=== PATIENT | female | born 1930 | race Caucasian/White ===

== ENCOUNTER → 2018-10-08 11:12 | Emergency (ER) | payer MEDICARE ==
--- OUTSIDE RECORDS SUMMARY | 2018-10-08 11:33 | XMS REPORT | Continuity of Care Document ---
:1930 External Reference #:[id number] Author Name Marquita Scott PA-C Address [address] [place] [address] Care Team Providers Name Role Phone Abdi Jiménez Care Team Information Stoner Hand Unavailable Amber Shultz M.D. Primary Care Physician Unavailable Payers Type Date Identification Numbers Payment Provider Subscriber Policy Number: [id number] [place] [employer] Cathy Myers PayID: [id number] [address] [place] [address] Policy Number: [id number] [facility] Cathy Myers PayID: [id number] [address] [place] [address] Advance Directives Description No Information Available Problems Date Description Provider Status Onset: 01/25/2011 Essential hypertension Lucio Uriostegui MD Active Onset: 07/28/2017 Impacted nazario Kellogg MD Active Family History Date Family Member(s) Problem(s) Comments General Allergies General Cancer General Hearing Loss General Heart Attack General Thyroid Disease Social History Type Date Description Comments Sex Unknown Occupation Retired Tobacco Use Start: Unknown End: Former Cigarette Smoker 2 Smoked for 40 years, Unknown Packs Daily quit at age 64 Tobacco Use Start: Unknown Never Smoked Cigars Tobacco Use Start: Unknown Never Smoked A Pipe Smokeless Tobacco Never Used Smokeless Tobacco ETOH Use Currently occasionally consumes alcohol Tobacco Use Start: Unknown End: Patient is a former Unknown smoker Allergies, Adverse Reactions, Alerts Date Description Reaction Status Severity Comments 08/24/2007 Penicillin swelling Active Medications Medication Date Status Form Strength Qnty SIG Indications Ordering Provider Atenolol Active Unknown 000 Acerola C 500 0 Hx Wafer 500mg Unknown 000 - [address] 400mg Unknown 000 - 011 Asacol Hx Unknown 000 - 017 Multivitamins Hx Unknown 000 - 018 Calcium + D Hx Unknown 000 - 018 Lutein Hx Unknown 000 - 018 Cod Liver Oil Hx Unknown 000 - 018 Oxycodone HCL Hx Tablets 5mg Harpal 000 - Fadi CRUZ [address] 20mg Rolan 000 - Dionte Diaz 018 Risedronate Hx Tablets 150mg Crepet, Sodium 000 - Emily Clark 018 Advair Diskus Hx Aerosol 250-50mcg/D Oma Shultz - sabrina Clark M.D. 018 Econazole Hx Cream 1% Unknown Nitrate 000 - 018 Flovent HFA Hx Aerosol 110mcg/Act Oma Shultz - Emily Clark 018 Immunizations CPT Code Status Date Vaccine Lot # [id number] Given Unknown Pneumococcal Vaccine 2Yrs Or Older 54467 Given Unknown Influenza Virus Vaccine, 3 Years Of Age And Above, Intramuscular Vital Signs Date Vital Result Comment 07/28/2017 8:53am BP Systolic 82 mmHg BP Diastolic 44 mmHg Heart Rate 66 /min Respiratory Rate 17 /min Weight 116.00 lb Weight 52.618 kg Height 60 inches 5'0" Height in cm's 152.4 cm BMI (Body Mass Index) 22.7 kg/m2 07/26/2016 12:07pm BP Systolic 138 mmHg BP Diastolic 68 mmHg Heart Rate 66 /min Respiratory Rate 17 /min Weight 116.00 lb Weight 52.618 kg Height 60 inches 5'0" Height in cm's 152.4 cm BMI (Body Mass Index) 22.7 kg/m2 01/25/2011 10:04am BP Systolic 162 mmHg BP Diastolic 104 mmHg Heart Rate 63 /min Respiratory Rate 16 /min 08/24/2007 11:20am BP Systolic 142 mmHg BP Diastolic 85 mmHg Heart Rate 61 /min Respiratory Rate 10 /min Results Description No Information Available Procedures Date Code Description Status 09/11/2018 57243 Removal Wax Impaction Completed 07/28/2017 41196 Removal Wax Impaction Completed 01/25/2011 38969 Tympanometry Completed 01/25/2011 95502 Comprehensive Audiogram Completed 08/24/2007 76063 Tympanometry Completed 08/24/2007 97930 Tympanometry Completed 08/24/2007 98576 Comprehensive Audiogram Completed 08/24/2007 03085 Comprehensive Audiogram Completed Encounters Type Date Location Provider Dx Diagnosis Office Visit 07/26/2016 [place] Lucio Morales H61.23 Impacted cerumen, 11:45a 11/03/07 MD Gila bilateral 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
[2018-10-08 12:26] LABS: ABS Basophils 0 10^3/ul (0-0.2); ABS Eosinophils 0.1 10^3/ul (0-0.6); ABS Lymphocytes 0.4 10^3/ul (1.0-4.8); ABS Monocytes 0.2 10^3/ul (0-0.8); ABS Neutrophils 3.7 10^3/ul (1.5-7.7); ABS Nucleated RBC 0 10^3/ul; Eosinophil % 1.4 %; Hematocrit 33 % (35-47); Hemoglobin 11.3 g/dl (12.0-16.0); Mean Corpuscular HGB Conc 34 g/dl (31-36); Mean Corpuscular Hemoglobin 32 pg (27-31); Mean Corpuscular Volume 94 fL (80-97); Mean Platelet Volume 6.6 fL (7.4-10.4); Nucleated Red Blood Cells % 0; Platelet Count 313 10^3/ul (150-450); Red Blood Count 3.51 10^6/ul (4.00-5.40); Red Cell Distribution Width 16 % (10.5-15); White Blood Count 4.4 10^3/ul (3.5-10.8)
--- NOTE | 2018-10-08 12:47 | ED ---
Neurological HPI - HPI Summary HPI Summary: Pt is an 88 y/o female who presents to the ED s/p possible syncope. 1 month ago , she fell and had LOC. As per daughter, she was down for a long time. 3 days ago, she leaned over and fell and couldnt get up. Pt denies any LOC or injury for this recent fall. As per daughter, she is normally independent but in the past month she cant walk without her walker. Daughter also notes that her face is more droopy than usual. Pt has CT scheduled in 6 days for her 6 month check up for her lung cancer treatment. Pt denies any fever, chills, erythema, sore throat, CP, SOB, cough, abdominal pain, N/V, dysuria, hematuria, myalgia, edema , rash, headache, lightheadedness, or dizziness. She is a former smoker. - History of Current Complaint Chief Complaint: EDSyncope Stated Complaint: POSS STROKE Time Seen by Provider: 10/08/18 11:48 Hx Obtained From: Patient, Family/Leno Sewer - Daughter Onset/Duration: Gradual Onset, Started weeks ago - 1 month, Still Present Timing: Intermittent Episodes Lasting: Pain Intensity: 0 Pain Scale Used: 0-10 Numeric Character: Other: - LOC Aggravating: Nothing Alleviating: Spontanious Resolution Associated Signs and Symptoms: Positive: Negative - Additional Pertinent History Primary Care Physician: VIVIEN - Allergy/Home Medications Allergies/Adverse Reactions: Allergies Allergy/AdvReac Type Severity Reaction Status Date / Time Penicillins Allergy Swelling Verified 03/20/18 10:54 Of Face,Lips,& Throat Home Medications: Home Medications Atenolol TAB* [Tenormin TAB* 25 MG] 25 mg PO DAILY 10/08/18 [History Confirmed 10/08/18] Multivitamins/Minerals TAB* [Theragran/minerals TAB*] 1 tab PO DAILY 10/08/18 [ History Confirmed 10/08/18] guaiFENesin ER TAB [Mucinex*] 600 mg PO BID PRN 10/08/18 [History Confirmed 04/20] PMH/Surg Hx/FS Hx/Imm Hx Endocrine/Hematology History: Reports: Hx Blood Transfusions, Hx Thyroid Disease , Hx Anemia Denies: Hx Anticoagulant Therapy, Hx Blood Disorders, Hx Diabetes, Hx Systemic Lupus Erythematosus, Hx Unexplained Bleeding Cardiovascular History: Reports: Hx Hypertension - meds used well controlled Denies: Hx Aneurysm, Hx Angina, Hx Angioplasty, Hx Auto Implanted Cardiovert Defib, Hx Cardiac Arrest, Hx Cardiomegaly, Hx Congenital Heart Disease, Hx Congestive Heart Failure, Hx Coronary Artery Disease, Hx Deep Vein Thrombosis, Hx Embolism, Hx Hypercholesterolemia, Hx Pacemaker/ICD Respiratory History: Reports: Hx Chronic Obstructive Pulmonary Disease (COPD), Hx Lung Cancer, Hx Pneumonia, Hx Seasonal Allergies, Other Respiratory Problems/ Disorders Denies: Hx Asthma, Hx Pleural Effusion, Hx Pulmonary Edema, Hx Pulmonary Embolism GI History: Reports: Hx Crohn's Disease, Hx Diverticulosis, Hx Irritable Bowel, Hx Obstructive Bowel, Hx Ileostomy Denies: Hx Cirrhosis, Other GI Disorders - COLECTOMY, COLOSTOMY History: Denies: Hx Dialysis, Hx Renal Disease, Other Problems/Disorders Musculoskeletal History: Reports: Hx Back Problems - spinal stenosis, Other Musculoskeletal History - Olecranon bursitis Denies: Hx Arthritis, Hx Rheumatoid Arthritis, Hx Fibromyalgia Sensory History: Reports: 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, Hx Contacts or Glasses, Hx Legally Blind - L eye, Hx Vision Problem, Hx Hearing Problem Denies: Hx Eye Injury, Hx Eye Prosthesis, Hx Deafness, Hx Hearing Aid, Other Sensory Impairments Opthamlomology History: Reports: 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, Hx Contacts or Glasses, Hx Legally Blind - L eye, Hx Vision Problem Denies: Hx Eye Injury, Hx Eye Prosthesis, Other Sensory Impairments Neurological History: Reports: Other Neuro Impairments/Disorders - PAIN CLINIC PT Denies: Hx Dementia, Hx Developmental Delay, Hx Headaches, Hx Migraine, Hx Nerve Disease, Hx Seizures, Hx Spinal Cord Injury, Hx Transient Ischemic Attacks (TIA) Psychiatric History: Denies: Hx Panic Disorder - Cancer History Cancer Type, 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 Hx Chemotherapy: No Hx Radiation Therapy: No Hx Palliative Cancer Treatment: No - Surgical History Surgery Procedure, Year, and Place: whipple procedure 2000, cataracts,bowel abcess, regional enteritis large intestine tranverse colectomy/colostomy 2004, fistula to bladder repair, hysterectomy Hx Anesthesia Reactions: No Infectious Disease History: No Infectious Disease History: Denies: Hx Clostridium Difficile, Hx Hepatitis, Hx Human Immunodeficiency Virus (HIV), Hx of Known/Suspected MRSA, Hx Shingles, Hx Tuberculosis, Hx Known/ Suspected VRE, Hx Known/Suspected VRSA, History Other Infectious Disease, Traveled Outside the [place] in Last 30 Days - Family History Known Family History: Positive: Cardiac Disease, Other - CA Negative: Diabetes - Social History Alcohol Use: Weekly Alcohol Amount: 4-5 DRINKS Hx Substance Use: No Substance Use Type: Reports: None Hx Tobacco Use: Yes Smoking Status (MU): Former Smoker Type: Cigarettes Have You Smoked in the Last Year: No Review of Systems Negative: Fever, Chills Negative: Erythema Negative: Sore Throat Negative: Chest Pain Negative: Shortness Of Breath, Cough Negative: Abdominal Pain, Vomiting, Nausea Negative: dysuria, hematuria Negative: Myalgia, Edema Negative: Rash Neurological: Other - facial drooping, NEGATIVE: dizziness, lightheadedness Positive: Syncope. Negative: Headache All Other Systems Reviewed And Are Negative: Yes Physical Exam - Summary Physical Exam Summary: Constitutional: Well-developed, Well-nourished, Alert. (-) Distressed Skin: Warm, Dry HENT: Normocephalic; Atraumatic Eyes: Conjunctiva normal Neck: Musculoskeletal ROM normal neck. (-) JVD, (-) Stridor, (-) Tracheal deviation Cardio: Rhythm regular, rate normal, Heart sounds normal; Intact distal pulses; The pedal pulses are 2+ and symmetric. Radial pulses are 2+ and symmetric. (-) Murmur Pulmonary/Chest wall: Effort normal. (-) Respiratory distress, (-) Wheezes, (-) Rales Abd: Soft, (-) epigastric tenderness, (-) Distension, (-) Guarding, (-) Rebound Musculoskeletal: (-) Edema Lymph: (-) Cervical adenopathy Neuro: Alert, Oriented x3, occasional mild right-sided facial droop when smiling Psych: Mood and affect Normal GCS: 15 Triage Information Reviewed: Yes Vital Signs On Initial Exam: Initial Vitals Temp Pulse Resp BP Pulse Ox 98.5 F 81 18 138/93 98 10/08/18 11:13 10/08/18 11:13 10/08/18 11:13 10/08/18 11:13 10/08/18 11:13 Vital Signs Reviewed: Yes Diagnostics - Vital Signs Vital Signs Temp Pulse Resp BP Pulse Ox 10/08/18 12:08 89 24 173/83 77 10/08/18 12:07 19 10/08/18 11:13 98.5 F 81 18 138/93 98 - Laboratory Lab Results: Lab Results 10/08/18 Range/Units 12:13 WBC 4.4 (3.5-10.8) 10^3/ul RBC 3.51 L (4.00-5.40) 10^6/ul Hgb 11.3 L (12.0-16.0) g/dl Hct 33 L (35-47) % MCV 94 (80-97) fL MCH 32 H (27-31) pg MCHC 34 (31-36) g/dl RDW 16 H (10.5-15) % Plt Count 313 (150-450) 10^3/ul MPV 6.6 L (7.4-10.4) fL Neut % (Auto) 85.2 % Lymph % (Auto) 8.0 % Henry % (Auto) 4.5 % Eos % (Auto) 1.4 % Baso % (Auto) 0.9 % Absolute Neuts (auto) 3.7 (1.5-7.7) 10^3/ul Absolute Lymphs (auto) 0.4 L (1.0-4.8) 10^3/ul Absolute Monos (auto) 0.2 (0-0.8) 10^3/ul Absolute Eos (auto) 0.1 (0-0.6) 10^3/ul Absolute Basos (auto) 0 (0-0.2) 10^3/ul Absolute Nucleated RBC 0 10^3/ul Nucleated RBC % 0 Result Diagrams: 10/08/18 12:13 10/08/18 12:13 Lab Statement: Any lab studies that have been ordered have been reviewed, and results considered in the medical decision making process. - CT Brain CT CT Interpretation Completed By: Radiologist Summary of CT Findings: No intracranial mass or hemorrhage is noted. Chronic ischemic White matter change. ED physician reviewed radiology report. - EKG 12:01 Cardiac Rate: NL - 66 bpm EKG Rhythm: Sinus Rhythm Summary of EKG Findings: no STEMI NIH Scale - NIH Scale Level of Consciousness: Alert/Keenly Responsive Ask Patient the Month and His/Her Age: Both Correct Ask Pt to Open/Close Eyes and Shingle Catcher/Release Non-Paretic Hand: Both Correctly Best Gaze (Only Horizontal Eye Movement): Normal Visual Field Testing: No Visual Loss Facial Paresis-Pt to Smile & Close Eyes or Grimace Symmetry: Normal/Symmetrical Motor Function - Right Arm: No Drift-Holds 10 Seconds Motor Function - Left Arm: No Drift-Holds 10 Seconds Motor Function - Right Leg: No Drift-Holds 10 Seconds Motor Function - Left Leg: No Drift-Holds 10 Seconds Limb Ataxia-Must be out of Proportion to Weakness Present: Absent Sensory (Use Pinprick to Test Arms/Legs/Trunk/Face): Normal Best Language (Describe Picture, Name Items): No Aphasia Dysarthria (Read Several Words): Normal Extinction and Inattention: No Abnormality Total Score: 0 Course/Dx - Course Course Of Treatment: Pt is an 88 y/o female who presents to the ED s/p possible syncope. 1 month ago, she fell and had LOC. As per daughter, she was down for a long time. 3 days ago, she leaned over and fell and couldnt get up. Pt denies any LOC or injury for this recent fall. As per daughter, she is normally independent but in the past month she cant walk without her walker. Daughter also notes that her face is more droopy than usual. Final dx are uncontrolled HTN and frequent falls. Pt is discharged to follow up with her PCP. - Diagnoses Provider Diagnoses: Uncontrolled hypertension, Frequent falls - Physician Notifications Discussed Care Of Patient With: Charlotte Mcmillan Time Discussed With Above Provider: 14:21 Instructed by Provider To: Other - Dr. Mcmillan will see in ED. At 15:40 Dr. Mcmillan visited the pt, who has no indication for admission and no neurological deficits. Discharge - Sign-Out/Discharge Documenting (check all that apply): Patient Departure - Discharge - Discharge Plan Condition: Stable Disposition: HOME Patient Education Materials: Fall Prevention for Older Adults (ED), Hypertension (ED) Referrals: Amber Shultz MD [Primary Care Provider] - (2-3 days) Additional Instructions: RETURN TO THE ED WITH ANY NEW OR WORSENING SYMPTOMS. - Attestation Statements Document Initiated by Scribe: Yes Documenting Scribe: Fabiana Harrison Provider For Whom Scribe is Documenting (Include Credential): Evan Storm MD Scribe Attestation: Fabiana Rodriguez, scribed for Evan Storm MD on 12/06/18 at 1559. Status of Scribe Document: Ready
[2018-10-08 12:51] LABS: EGFR Non-African American 45.2 (>60)
[2018-10-08 16:12] VITALS: BP 183/118
--- NOTE | 2018-10-08 21:26 | CONS ---
CC: Dr. Nura Jo; Dr. Amber Shultz; Dr. Nuha Whitt * CONSULTATION REPORT: DATE OF CONSULT: 10/08/18 REQUESTING DOCTOR: Dr. Storm. REASON FOR CONSULT: Repeat falls, change in gait, and question of facial asymmetry. 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 The first fall happened 1 month ago when she went down and had a sore spot on her head and no memory for the event. It is unclear how long she had fallen or what happened. The last episode happened this past Friday, 3 days prior to arrival, where she bent down to go into the refrigerator and found it hard to get up. She rolled on to the floor, used a walker to get up, and denied passing out. There was no incontinence for either event. There was no diffuse muscle soreness. No known confusion, no tongue biting. Her daughter who had been in [place] for the last 2 weeks visited yesterday and felt that her gait had changed in that she was now using a walker to hold on to while she walked. Mrs. Myers clearly stated that now she was using walker because she was afraid of falling. She had also asked about getting a stool for the shower so she did not fall. She lives alone and she has been very independent. She has felt more unsettled and uncomfortable in the mind since this happened. Although she is active, she does not exercise on a regular basis. She has had some numbness in her hands but this has been chronic. She has a chronic issue with lumbosacral spinal stenosis and has had injections and indicates this can affect some of the use of her legs. She has had chronic joint pain. PAST MEDICAL HISTORY: 1. COPD for which she follows with Dr. Whitt. 2. She has a history of adeno CA with a right lung mass for which she follows with Dr. Jo. 3. 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 4. She had colostomy placed in 2004 secondary to abdominal abscess. She has had problems with bilateral rotator cuff. 5. They note a history of hypertension. A review of all the patient's records, there was also suspicion of well- differentiated adeno CA on liver biopsy; however, PET scan at [place] did not confirm pathology in the liver. CURRENT MEDICATIONS: 1. Advair Diskus 500/50 inhaled b.i.d. 2. Atenolol 25 mg p.o. q. day. ALLERGIES: She has no known drug allergies. FAMILY HISTORY: Includes cancer in her mother, unknown type. Both mother and father had COPD. She has had 3 brothers, 1 and she indicates he was ill for many years but does not know any further details. SOCIAL HISTORY: She does not smoke and stopped smoking 20 years ago. She drinks 1 drink a day which has before dinner and looks forward to. She uses oxygen at home 2 L at bedtime and with ambulation which she needs it. She lives by herself. She has 2 daughters, who were at bedside today. 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 There has been no new change in her vision. She has had fullness in her ears and chronic hearing loss. There has been no change in her speech that she notes but her daughter thinks she is more hoarse. There has been no difficulty swallowing. There has been chronic numbness of the hands which is intermittent. There has been no change in bladder habit. She has a colostomy and there has been no change in function. She denies any new joint pain, although has chronic joint pain with arthritis. There have been no new rashes, no fevers, no drenching night sweats or high fevers for unknown reason. She denies any chest pain, chest pressure, palpitations, shortness of breath. Her blood pressure was noted to be elevated in the emergency room. PHYSICAL EXAM: Her blood pressure is recorded as 197/106 and frequently while in her room, her blood pressure was over 180 systolic and frequently over 200 and her diastolic was in the 90s, or over 100. She had a regular cardiac rhythm with a heart rate of 71, respiratory rate was 18, her saturation was 91% , and her temperature was 98.5 degrees Fahrenheit. She had a regular cardiac rhythm. Her lungs were clear to auscultation, although with decreased breath sounds throughout. Her peripheral pulses were intact and there was no evidence of peripheral edema and no rashes were noted. She had pupil that was 3 mm and responsive to light on the right hand side and fundi was flat. Her left side, I could not visualize her fundi as there was evidence of old senile cataract. She had full extraocular movements with her right eye. With the left eye, she had decreased abduction. She had full vieira to confrontation with her right eye and she could not see light out of her left eye. Her facial expression, sensation, and hearing were equal, although hearing was decreased bilaterally. Her tympanic membranes appeared normal. Her palate was upgoing, tongue was midline. Sternocleidomastoid and trapezius were 5/5 in strength. There was normal bulk and tone. No pronator drift; however she had some limitation of movement of her shoulders. She gave good strength in her arms with the exception of left deltoid that was a give way. She was able to give good resistance in her legs. She was able to do sgstok-eo-rcya movements without difficulty. Tste-mf-pbxq movements were more difficult with right leg, where she felt was inhibited by her chronic leg function. There was no dysmetria. Her reflexes were 1+ in the upper extremities, absent in the lower extremities, toes were equivocal. Vibration, sensation was not felt at large toes. It was felt at the ankles, knees, DIP, but was decreased by at least 20 seconds, but somewhat variable in response. Proprioception was intact at the large toes. There were no asymmetries or length-dependent changes to pinprick, cold, or light touch. When she stood, she had a wobbly Romberg. She was able to walk just holding on to one examiner's hand with a stance increased at about 6 inches. She could get up on to her heels and her toes, and she got in and out of bed without difficulty. DIAGNOSTIC STUDIES/LAB DATA: CT of the brain which shows evidence of some atrophy as well as significant periventricular small vessel ischemic disease. This was reviewed directly. Her CBC showed slight anemia with hemoglobin and hematocrit at 11.3 and 33, white count was normal, platelets were normal. Metabolic panel showed chloride was low at 100. Her creatinine was elevated at 1.14, glucose was 105, magnesium was 1.8. AST was elevated at 51. TSH is pending. Urinalysis has been ordered. IMPRESSION AND PLAN: An 88-year-old woman who has had repeat falls and her daughter has noted for being more cautious with her gait using walker this week after her second fall, and she also questioned facial asymmetry. Regarding her falls, this is most likely a mechanical issue. We talked about how proprioception can change with age and there may be a superimposed peripheral neuropathy. She also had lumbosacral spinal stenosis and she has had decreased activity. She should use a walker to help with her with stability and I would highly recommend her being in physical therapy for strengthening and balance and then transitioning into a balance class. I talked to the family about getting involved in the exercises to make sure that there is compliance. She is also interested in further safety at home such as shower chair and I have suggested talking to primary care. There is no new focality on physical examination or finding on CT brain to suggest a new stroke. I am not seeing any evidence of facial asymmetry. Education was provided. I am not hearing any history to convincingly tell me that there was a seizure that caused these falls. Certainly, the second episode sounds much more that she got off balance and had to put herself to the ground and get up. There is no clear history for the first event. Certainly in the future, if there are any concerns in this regard, we can get an MRI and EEG and she can followup with me. I do not think this is indicated at this time. On CT of the brain, there is evidence of small vessel ischemic disease. There was no evidence of mass or edema on the noncontrast study. She did have significant hypertension while she was here, and needs further control of her blood pressure. Dr. Storm will address this acutely, and she should follow up with her primary doctor. Education was given regarding changes that happen with aging, changes that happen with balance in the setting of her other diagnoses, and how things can change as she is getting older, and how in the future she may need more supervision and help. Right now, the goal is to remain independent. TIME SPENT: Over 90 minutes was spent in direct patient care. All questions were answered. [id number]/[facility] #: [id number] KHADAR
== END | disposition home or self-care (01) ==
LOC: ED 11:12
DX: I10 Essential (primary) hypertension (principal); Z91.81 History of falling; R29.810 Facial weakness; Z85.068 Personal history of other malignant neoplasm of small intestine; Z88.0 Allergy status to penicillin; Z87.891 Personal history of nicotine dependence
CPT/HCPCS: 36415; 70450; 80053; 83605; 83735; 84443; 84484; 85025; 93005; 99283

== ENCOUNTER 2019-08-15 04:08 | Observation (INO) | payer MEDICARE ==
[2019-08-15] MEDS ORDERED: NS 0.9% 1000 ML** 1,000 ML IV ONE (04:45)
--- NOTE | 2019-08-15 05:36 | ED ---
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 She lives in a mobile home in [facility] and had a fall in her house, after which she called the EMS. She notes that she remembers the fall and felt like she had a mini-stroke. Per the EMS, she was hypoxic upon arrival. She rates her current pain severity a 5/10. No aggravating or alleviating factors noted. She also reports some headache and bruising/ lacerations to her right arm but denies any SOB, LOC, or CP. LEVEL 5 CAVEAT. Pt is a poor historian and is confused and unable to provide a complete history. - History of Current Complaint Chief Complaint: EDFall Stated Complaint: FALL/HEAD LAC PER EMS Hx Obtained From: Patient Hx From Patient Unobtainable Due To: Other - LEVEL 5 CAVEAT. Pt is a poor historian and is confused and unable to provide a complete history. Mechanism of Injury: Fall Loss of Consciousness: no loss of consciousness Onset/Duration: Started Hours Ago, Still Present Onset of Pain: Post Accident Onset Severity: Moderate Current Severity: Moderate Pain Intensity: 5 Pain Scale Used: 0-10 Numeric - Additional Pertinent History Primary Care Physician: [id number] - Allergy/Home Medications Allergies/Adverse Reactions: Allergies Allergy/AdvReac Type Severity Reaction Status Date / Time Penicillins Allergy Swelling Verified 08/15/19 04:31 Of Face,Lips,& Throat PMH/Surg Hx/FS Hx/Imm Hx Endocrine/Hematology History: Reports: Hx Blood Transfusions, Hx Thyroid Disease , Hx Anemia Denies: Hx Anticoagulant Therapy, Hx Blood Disorders, Hx Diabetes, Hx Systemic Lupus Erythematosus, Hx Unexplained Bleeding Cardiovascular History: Reports: Hx Hypertension - meds used well controlled Denies: Hx Aneurysm, Hx Angina, Hx Angioplasty, Hx Auto Implanted Cardiovert Defib, Hx Cardiac Arrest, Hx Cardiomegaly, Hx Congenital Heart Disease, Hx Congestive Heart Failure, Hx Coronary Artery Disease, Hx Deep Vein Thrombosis, Hx Embolism, Hx Hypercholesterolemia, Hx Pacemaker/ICD Respiratory History: Reports: Hx Chronic Obstructive Pulmonary Disease (COPD), Hx Lung Cancer, Hx Pneumonia, Hx Seasonal Allergies, Other Respiratory Problems/ Disorders Denies: Hx Asthma, Hx Pleural Effusion, Hx Pulmonary Edema, Hx Pulmonary Embolism GI History: Reports: Hx Crohn's Disease, Hx Diverticulosis, Hx Irritable Bowel, Hx Obstructive Bowel, Hx Ileostomy Denies: Hx Cirrhosis, Other GI Disorders - COLECTOMY, COLOSTOMY History: Denies: Hx Dialysis, Hx Renal Disease, Other Problems/Disorders Musculoskeletal History: Reports: Hx Back Problems - spinal stenosis, Other Musculoskeletal History - Olecranon bursitis Denies: Hx Arthritis, Hx Rheumatoid Arthritis, Hx Fibromyalgia Sensory History: Reports: 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, Hx Contacts or Glasses, Hx Legally Blind - L eye, Hx Vision Problem, Hx Hearing Aid , Hx Hearing Problem Denies: Hx Eye Injury, Hx Eye Prosthesis, Hx Deafness, Other Sensory Impairments Opthamlomology History: Reports: 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, Hx Contacts or Glasses, Hx Legally Blind - L eye, Hx Vision Problem Denies: Hx Eye Injury, Hx Eye Prosthesis, Other Sensory Impairments Neurological History: Reports: Other Neuro Impairments/Disorders - PAIN CLINIC PT Denies: Hx Dementia, Hx Developmental Delay, Hx Headaches, Hx Migraine, Hx Nerve Disease, Hx Seizures, Hx Spinal Cord Injury, Hx Transient Ischemic Attacks (TIA) Psychiatric History: Denies: Hx Panic Disorder - Cancer History Cancer Type, 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 Hx Chemotherapy: No Hx Radiation Therapy: No Hx Palliative Cancer Treatment: No - Surgical History Surgery Procedure, Year, and Place: whipple procedure 2000, cataracts,bowel abcess, regional enteritis large intestine tranverse colectomy/colostomy 2004, fistula to bladder repair, hysterectomy Hx Anesthesia Reactions: No Infectious Disease History: No Infectious Disease History: Denies: Hx Clostridium Difficile, Hx Hepatitis, Hx Human Immunodeficiency Virus (HIV), Hx of Known/Suspected MRSA, Hx Shingles, Hx Tuberculosis, Hx Known/ Suspected VRE, Hx Known/Suspected VRSA, History Other Infectious Disease, Traveled Outside the [place] in Last 30 Days - Family History Known Family History: Positive: Cardiac Disease, Other - CA Negative: Diabetes - Social History Alcohol Use: Weekly Alcohol Amount: 4-5 DRINKS Hx Substance Use: No Substance Use Type: Reports: None Hx Tobacco Use: Yes Smoking Status (MU): Former Smoker Type: Cigarettes Have You Smoked in the Last Year: No Review of Systems Negative: Chest Pain Negative: Shortness Of Breath Skin: Other - pos - laceration to right arm Positive: Bruising Positive: Headache. Negative: Syncope All Other Systems Reviewed And Are Negative: No - Comments Additional Review of Systems Comments: LEVEL 5 CAVEAT. Pt is a poor historian and is confused and unable to provide a complete history. Physical Exam - Summary Physical Exam Summary: General: Cachectic, elderly appearing female. No acute distress. HEENT: Normocephalic, hair has dried blood. Eyes: Conjuctiva normal, PERRL. Ears: TMs within normal limits. Nares: (-) discharge, (-) erythema. Oropharynx: Clear, mucous membranes moist, (-) exudates. Neck: Soft, FROM, (-) lymphadenopathy, (-) thyromegaly, (-) JVD. Cardiovascular: Normal sinus rhythm, (-) murmur. Lungs: Clear to auscultation bilaterally (-) wheezes, (-) rales, (-) rhonchi. Abdomen: Soft, non-tender, non-distended, (-) organomegaly, normal bowel sounds. Back: (-) CVA tenderness, Significant spinal curvature. Extremities: No edema. Skin: Warm, dry, (-) rash. 4 cm ecchymosis of the right elbow anterior with 2 cm laceration, large ecchymosis from the mid forehead to the mid temporal and parietal areas. Neuro: Alert and oriented x3, no focal deficits. Psychiatric: Mood normal, affect normal. Triage Information Reviewed: Yes Vital Signs On Initial Exam: Initial Vitals Temp Pulse Resp BP Pulse Ox 98.1 F 88 16 153/79 98 08/15/19 04:15 08/15/19 04:15 08/15/19 04:15 08/15/19 04:15 08/15/19 04:15 Vital Signs Reviewed: Yes Completion Of Physical Exam Limited Due To: Level 5 - LEVEL 5 CAVEAT. Pt is a poor historian and is confused and unable to provide a complete history. - Arely Coma Scale Best Eye Response: 4 - Spontaneous Best Motor Response: 6 - Obeys Commands Best Verbal Response: 5 - Oriented Coma Scale Total: 15 Procedures - Sedation Patient Received Moderate/Deep Sedation with Procedure: No Diagnostics - Vital Signs Vital Signs Temp Pulse Resp BP Pulse Ox 08/15/19 04:20 90 19 98 08/15/19 04:19 99 28 153/79 97 08/15/19 04:15 98.1 F 88 16 153/79 98 - Laboratory Result Diagrams: 08/15/19 05:33 08/15/19 05:33 Lab Statement: Any lab studies that have been ordered have been reviewed, and results considered in the medical decision making process. - Radiology CXR Radiology Interpretation Completed By: ED Physician Summary of Radiographic Findings: Increased interstitial markings, significant rotation, no obvious infiltrate, no pleural effusions, pending official report. - CT Brain CT CT Interpretation Completed By: Radiologist Summary of CT Findings: Impressions: No acute intracranial findings. ED Physician has reviewed this report. - EKG 0441 Cardiac Rate: NL EKG Rhythm: Sinus Rhythm - 87 bpm Summary of EKG Findings: EKG @ 0441 reveals SR @ 87 bpm. No STEMI. 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 Test results normal except for WBC 11.3, MCH 32, Absolute Neuts 10.1, Absolute Lymphs 0.3, Absolute Monos 0.9, Sodium 131, Chloride 100, BUN/Creatinine 20.3, Glucose 120, Calcium 20.5, Magnesium 1.6, AST 42, and troponin 0.12. In the ED course pt was given 1000 mls fluids. A CXR reveals: Increased interstitial markings, significant rotation, no obvious infiltrate, no pleural effusions, pending official report. A Brain CT reveals: No acute intracranial findings. An EKG reveals: EKG @ 0441 reveals SR @ 87 bpm. No STEMI. Final Dx are fall, head trauma, and elevated troponin. Dr. Marquez will admit the pt to [facility]. Pt is agreeable with this plan. - Diagnoses Provider Diagnoses: Fall, Head trauma, Elevated troponin - Physician Notifications Discussed Care Of Patient With: Ken Marquez - Dr. Marquez will admit pt to [facility]. Time Discussed With Above Provider: 06:55 Instructed by Provider To: Admit As Inpatient Discharge ED - Sign-Out/Discharge Documenting (check all that apply): Patient Departure - admit - Discharge Plan Condition: Stable Disposition: ADMITTED TO [facility] Referrals: Amber Shultz MD [Primary Care Provider] - - Billing Disposition and Condition Condition: STABLE Disposition: Admitted to [facility] - Attestation Statements Document Initiated by Scribe: Yes Documenting Scribe: Rodney Rosario Provider For Whom Scribe is Documenting (Include Credential): Tiana Jay MD Scribe Attestation: I, Rodney Rosario, scribed for Tiana Jay MD on 08/15/19 at 0655. Scribe Documentation Reviewed: Yes Provider Attestation: The documentation as recorded by the scribe, Rodney Rosario accurately reflects the service I personally performed and the decisions made by me, Tiana Jay MD Status of Scribe Document: Viewed
--- OUTSIDE RECORDS SUMMARY | 2019-08-15 05:39 | XMS REPORT | Continuity of Care Document ---
:1930 External Reference #:[id number] Author Name Marquita Scott PA-C Address [address] [place] [address] Care Team Providers Name Role Phone Amber Shultz M.D. - Internal Care Team Information Production Sanitizer [phone] Medicine Alexandrea JiménezINichole - Chain Splitter Care Team Information Production Sanitizer Problems Active Problems Provider Date Essential hypertension Lucio Uriostegui MD Onset: 01/25/2011 Impacted Nirav Elise MD Onset: 07/28/2017 Social History Type Date Description Comments Sex Unknown Tobacco Use Start: Unknown End: Former Cigarette Smoker 2 Smoked for 40 years, Unknown Packs Daily quit at age 64 Tobacco Use Start: Unknown Never Smoked Cigars Tobacco Use Start: Unknown Never Smoked A Pipe Smokeless Tobacco Never Used Smokeless Tobacco ETOH Use Currently occasionally consumes alcohol Tobacco Use Start: Unknown End: Patient is a former Unknown smoker Allergies, Adverse Reactions, Alerts Active Allergies Reaction Severity Comments Date Penicillin swelling 08/24/2007 Medications Active Medications SIG Qnty Indications Ordering Provider Date Atenolol Unknown Albuterol Sulfate HFA Inhale 2 Puffs By Unknown Mouth Three Times 108(90Base) mcg/Act A Day as Needed Aerosol For Shortness Of Breath Levothyroxine Sodium Amber Shultz, M.D. 88mcg Tablets Alendronate Sodium Amber Shultz, 70mg M.D. Tablets Immunizations CPT Code Status Date Vaccine Lot # [id number] Given Unknown Pneumococcal Vaccine 2Yrs Or Older 88756 Given Unknown Influenza Virus Vaccine, 3 Years Of Age And Above, Intramuscular Vital Signs Date Vital Result Comment 07/23/2019 11:02am Weight 98.00 lb Weight 44.453 kg Height 60 inches 5'0" Height in cm's 152.4 cm BMI (Body Mass Index) 19.1 kg/m2 07/28/2017 8:53am BP Systolic 82 mmHg BP Diastolic 44 mmHg Heart Rate 66 /min Respiratory Rate 17 /min Weight 116.00 lb Weight 52.618 kg Height 60 inches 5'0" Height in cm's 152.4 cm BMI (Body Mass Index) 22.7 kg/m2 Results Description No Information Available Procedures Date Code Description Status 07/23/2019 52562 Removal Wax Impaction Completed Medical Devices Description No Information Available Encounters Description No Information Available Assessments Date Code Description Provider 07/23/2019 H61.23 Impacted cerumen, bilateral Marquita Scott PA-C Plan of Treatment No Information Available Functional Status Description No Information Available Mental Status Description No Information Available Referrals Description No Information Available
[2019-08-15 05:46] LABS: INR 0.88 (0.82-1.09)
[2019-08-15 05:52] LABS: Anion Gap 8 mmol/L (2-11); CO2 Carbon Dioxide 23 mmol/L (22-32); Calcium 10.5 mg/dL (8.6-10.3); Chloride 100 mmol/L (101-111); Magnesium 1.6 mg/dL (1.9-2.7); Potassium 4.4 mmol/L (3.5-5.0); Sodium 131 mmol/L (135-145)
[2019-08-15 05:56] LABS: ABS Basophils 0.1 10^3/ul (0-0.2); ABS Lymphocytes 0.3 10^3/ul (1.0-4.8); ABS Monocytes 0.9 10^3/ul (0-0.8); ABS Neutrophils 10.1 10^3/ul (1.5-7.7); Hematocrit 35 % (35-47); Hemoglobin 12.1 g/dL (12.0-16.0); Lymphocyte % 2.3 %; Mean Corpuscular HGB Conc 35 g/dL (31-36); Mean Corpuscular Hemoglobin 32 pg (27-31); Mean Corpuscular Volume 94 fL (80-97); Platelet Count 204 10^3/uL (150-450); Red Blood Count 3.73 10^6 /uL (3.70-4.87); Red Cell Distribution Width 14 % (10-15); White Blood Count 11.3 10^3/uL (3.5-10.8)
[2019-08-15 05:58] LABS: ALT 22 U/L (7-52); AST 42 U/L (13-39); Albumin/Globulin Ratio 1.7 (1-3); Alkaline Phosphatase 71 U/L (34-104); BUN/Creatinine Ratio 20.3 (8-20); Blood Urea Nitrogen 16 mg/dL (6-24); EGFR African American 83.3 (>60); EGFR Non-African American 68.8 (>60); Globulin 2.4 g/dL (2-4); Glucose 120 mg/dL (70-100); Total Protein 6.4 g/dL (6.4-8.9)
[2019-08-15 06:25] LABS: TSH (Thyroid Stimulating Horm) 1.33 mcIU/mL (0.34-5.60)
[2019-08-15 06:35] LABS: Troponin I 0.12 ng/mL (<0.04)
[2019-08-15 09:15] LABS: Troponin I 0.21 ng/mL (<0.04)
[2019-08-15] MEDS ORDERED: Acetaminophen TAB* 325 MG PO PRN (09:51)
[2019-08-15] MEDS ORDERED: Aspirin 81 mg CHEW TAB* 81 MG TAB.CHEW PO ONE (09:54)
[2019-08-15] MEDS ORDERED: Atorvastatin* 40 MG TAB PO ONE (09:57)
[2019-08-15] MEDS ORDERED: Magnesium Sulfate IV* 3 GM in NS 0.9% 100 ML* 100 ML IVPB ONE (10:16)
[2019-08-15] MEDS ORDERED: hydrALAZINE IV* 20 MG/ML VIAL IV SLOW PU PRN (10:16)
[2019-08-15] MEDS: Atenolol TAB* 25 MG PO SCH (11:08)
[2019-08-15 12:34] LABS: Cholesterol 178 mg/dL; HDL Cholesterol 90.6 mg/dL; LDL Cholesterol 71 mg/dL; Triglycerides 82 mg/dL
[2019-08-15] MEDS: Heparin VIAL(*) 5000 UNITS/ML VIAL (FIVE THOUSAND) SUBCUT SCH ×2 (12:43→22:17)
--- NOTE | 2019-08-15 13:20 | HP ---
CC: Dr. Amber Shultz * HISTORY AND PHYSICAL: DATE OF ADMISSION: 08/15/19 PRIMARY CARE PHYSICIAN: Amber Shultz MD ATTENDING PHYSICIAN: Ken Marquez MD * (dictation provided by Marquita Jang NP) CHIEF COMPLIANT: Fall. HISTORY OF PRESENT ILLNESS: Ms. Myers is an 89-year-old female with a past medical history of ampullary cancer status post Whipple, small bowel obstruction status post colostomy placement, question of current pulmonary adenocarcinoma, hypertension, falls, who presents today to the hospital after a fall at home. Ms. Myers lives alone. She states that she has been feeling her normal state of health recently. She was up this morning, and approximately at 6:30 a.m. when she fell. She is not able to recreate or describe to me the events that led to the fall. She is not clear whether or not she tripped on a rug but suspects that this could have been the possibility. She is not able to tell me whether or not she lost consciousness or not. She thinks that if she did loose consciousness, it was only for few moments. She was able to make her way to the phone shortly after the fall and call for help. Ms. Myers was brought in to the emergency room via EMS. Her labs showed that she had an elevated troponin to 0.12. She had an mildly low sodium at 131. Her magnesium is mildly low at 1.6, potassium is 4.4, TSH 1.33, white blood cell count is only 11.3. Her vitals showed that she is mildly hypertensive with the blood pressure running systolically to 170s. Vital signs are otherwise stable. Ms. Myers denies any chest pain, shortness of breath, nausea, vomiting, diarrhea , abdominal pain the recent days. She states she is feeling well at the moment other than some aches and pains from the fall. PAST MEDICAL HISTORY: 1. Ampullary cancer status post Whipple procedure 2. Question of pulmonary adenocarcinoma. 3. The patient states that she does not have any active cancer. 4. Hypertension. 5. DJD. 6. Small bowel obstruction status post colostomy. 7. COPD. 8. Home O2 use at night a 2 L nasal cannula. MEDICATIONS: The patient is not able to fully corroborate her medication list, but does confirm that she is on atenolol 25 mg p.o. daily. She seems to think she is on another medications, but is not able to recall what that is. I suspect that is levothyroxine 88 mcg daily based on the EMR data, but this will need to be confirmed with Dr. Shultz's office tomorrow when they are open. ALLERGIES: To PENICILLIN. FAMILY HISTORY: The patient's father had heart problems and COPD. Mother early with colon cancer. SOCIAL HISTORY: The patient is a former smoker, she quit more than 20 years ago. No reported alcohol or and drug use. She lives alone. She states her daughters Jacqueline and Cheryle would be the healthcare proxies. REVIEW OF SYSTEMS: A 14-point review of systems was completed with Ms. Myers and all those not mentioned above were negative. PHYSICAL EXAMINATION VITAL SIGNS: Temperature 97.8, pulse rate 94, respiratory rate 16, O2 saturation 98% on 2 L nasal cannula, blood pressure 177/82. GENERAL: Ms. Myers is sitting in bed, she is in no acute distress, eating breakfast. LUNGS : Clear to auscultation bilaterally. No accessory muscle use and good aeration. HEART: S1, S2. No murmurs, rubs, gallop and regular. ABDOMEN: Soft, nontender with bowel sounds present x4. EXTREMITIES: No cyanosis. No edema. NEUROLOGIC: She is alert. She is oriented x3. She moves all extremities equally. There is no facial asymmetry or focal weakness. Extraocular movements are intact. SKIN: The patient has a bruise and skin tear to her forehead on the right side. She has a right elbow bruising and skin laceration. DIAGNOSTIC STUDIES/LAB DATA: WBC 11.3, hemoglobin 12.1, hematocrit 35, platelet count 204. INR 0.88. Sodium 131, potassium 4.4, chloride 100, bicarbonate 23, BUN 16, creatinine 0.79, glucose 120. Lactic acid 1.7, magnesium 1.6, calcium 10.5. Troponin 0.12. TSH 1.33. Chest x-ray shows no acute intrathoracic process. CT brain shows no acute process. EKG shows a sinus rhythm with no evidence of ischemia. Heart rate is about 85. ASSESSMENT: Ms. Myers is an 89-year-old female with a past medical history of ampullary cancer status post Whipple procedure, chronic obstructive pulmonary disease with home O2 at night and report of recent falls at least going back to October 2018, who presents to the hospital today after a fall at home, found to have an elevated troponin. Our plans are for observation in the hospital for the followin. Elevated troponin. The patient's first troponin was 0.12, we will repeat q.3 hours until they peak. She will have an EKG with troponins. She has no evidence of an ST elevation NC. She is chest pain-free. Plan to treat with aspirin, and statin and she is already on a beta-ton. I suspect this may just be demand ischemia, transthoracic echocardiogram has been ordered and further work will be based on clinical course. 2. Fall. The patient has had a history of falls at least going back to October 2018, at which time she had a consultation with Dr. Mcmillan, who suspected at that point that this was likely related to aging perhaps component of peripheral neuropathy and proprioception changes. The patient has no real clear recollection of what happened leading to the fall. She will have physical therapy evaluation prior to discharge. She will be monitored on the telemetry unit to rule out arrhythmia. 3. Hypertension, continue atenolol. She will have hydralazine available p.r.n. for blood pressure greater than 185. 4. Questionable hypothyroidism, at least according to the data available and electronic medical record, the patient was on levothyroxine. I recommend that this be confirmed with Dr. Shultz's office, but for now I planned to continue levothyroxine. 5. Hypomagnesemia. The patient will have magnesium supplementation. 6. Code status is DNR. The MOLST form has been completed with the patient. TIME SPENT: Approximately 60 minutes was spent on the admission of the patient , more than half of the time was spent at the patients's bedside reviewing the events leading up to the hospitalization performing physical examination and reviewing my plan of care. MARQUITA JANG, ALANIS [id number]/[facility] #: [id number] KHADAR
[2019-08-15 14:35] LABS: Troponin I 0.21 ng/mL (<0.04)
[2019-08-15 16:42] LABS: Troponin I 0.23 ng/mL (<0.04)
[2019-08-15 21:07] LABS: Troponin I 0.19 ng/mL (<0.04)
[2019-08-16 00:45] LABS: Troponin I 0.18 ng/mL (<0.04)
[2019-08-16] MEDS: Levothyroxine TAB* 88 MCG TAB PO SCH (05:45)
[2019-08-16] MEDS: Heparin VIAL(*) 5000 UNITS/ML VIAL (FIVE THOUSAND) SUBCUT SCH ×3 (05:45→21:55)
[2019-08-16] MEDS ORDERED: Atenolol TAB* 25 MG PO SCH (09:00)
[2019-08-16] MEDS: Atenolol TAB* 25 MG PO SCH (09:54)
[2019-08-16] MEDS: Aspirin EC TAB* 81 MG TAB.EC PO SCH (09:55)
[2019-08-16 10:17] LABS: Urine Appearance Clear; Urine Bacteria Absent (Absent); Urine Bilirubin Negative (Negative); Urine Blood Negative (Negative); Urine Color Yellow; Urine Glucose Negative (Negative); Urine Ketones Negative (Negative); Urine Nitrite Negative (Negative); Urine Protein Negative (Negative); Urine Red Blood Cell Trace(0-2/hpf) (Absent); Urine Specific Gravity 1.016 (1.010-1.030); Urine Squamous Epithelial Cell Present (Absent); Urine Transitional Epithelial Present (Absent); Urine Urobilinogen Negative (Negative); Urine White Blood Cell 3+(>20/hpf) (Absent)
--- NOTE | 2019-08-16 11:50 | ECHO ---
*[facility]* [place] [address] Fax #: [phone] Transthoracic Echocardiogram Patient: Cathy Myers : 1930 Study Date: 08/16/2019 Age: 89 Gender: F HR: 75 bpm Height: 60 in /152.4 cm BSA: 1.48 m^2 Weight: 114.8 lb /52.2 kg BMI: 22.5 kg/m^2 *Shoe Trimmer: * Marion Garg RD *Referring Physician: * Marquita Jang *Reading Physician: * Margarito Dumont MD Indications: Elevated troponin. History: Chronic obstructive pulmonary disease. Risk factors: Hypertension. Labs, prior tests, procedures, and surgery: Colectomy. Conclusions Summary: - Left ventricle: Systolic function is normal. The estimated ejection fraction is 60-65%. Wall motion is normal; there are no regional wall motion abnormalities. - Right ventricle: Systolic function is normal. - Mitral valve: There is mild regurgitation. - Aortic valve: There is no evidence of stenosis. There is trace regurgitation. - Tricuspid valve: There is mild regurgitation. - Pericardium, extracardiac: There is no significant pericardial effusion. - Pulmonary arteries: Systolic pressure is within the normal range. - Study data: No prior study is available for comparison. Study data: Transthoracic echocardiogram. Procedure: Transthoracic echocardiography was performed. Image quality was fair. The study was technically limited due to surgical dressings. Complete 2D, spectral Doppler, and color flow Doppler. Location: Bedside. Patient status: Inpatient. Patient room number: 438. No prior study is available for comparison. Rhythm: Heart block. Findings Left ventricle: The cavity size is at the lower limits of normal. Wall thickness is mildly increased. Systolic function is normal. The estimated ejection fraction is 60-65%. Wall motion is normal; there are no regional wall motion abnormalities. Doppler parameters are consistent with abnormal left ventricular relaxation (grade 1 diastolic dysfunction). Right ventricle: The cavity size is normal. Systolic function is normal. Left atrium: The atrium is normal in size. Right atrium: The atrium is normal in size. Mitral valve: The leaflets are mildly thickened. There is no evidence of stenosis. There is mild regurgitation. Aortic valve: The valve is trileaflet. The leaflets are mildly thickened. There is no evidence of stenosis. There is trace regurgitation. Tricuspid valve: The leaflets are normal thickness. There is no evidence of stenosis. There is mild regurgitation. Pulmonic valve: Not well visualized. There is no evidence of stenosis. Aorta: Aortic root: The aortic root is appears normal. Ascending aorta: The ascending aorta is appears normal. Aortic arch: The aortic arch is not visualized. Pericardium: There is no significant pericardial effusion. Pulmonary arteries: Not well visualized. Systolic pressure is within the normal range. Systemic veins: Inferior vena cava: The vessel is normal in size. There is (>= 50%) respiratory change in the IVC dimension. Measurements Left ventricle Value Ref Aortic valve Value Ref JUDY, LAX (L) 3.4 cm 3.8 - 5.2 Siddhartha diam, ED 1.8 cm ------- ESD, LAX 2.2 cm 2.2 - 3.5 Peak v, S 1.4 m/sec ------- FS, LAX 35 % 27 - 45 VTI, S 33.5 cm ------- PW, ED, LAX (H) 1.1 cm 0.6 - 0.9 Mean grad, S 5.0 mm Hg ------- FS 35 % 27 - 45 Peak grad, S 8.0 mm Hg ------- PW, ED (H) 1.1 cm 0.6 - 0.9 LVOT/AV, VTI ratio 0.84 ------- PW/ID, ED 0.32 E', lat siddhartha, TDI (L) 7.0 cm/sec >=10.0 Mitral valve Value Ref E/e', lat siddhartha, 12 Peak E 0.82 m/sec --- ---- TDI Peak A 0.9 m/sec ------- E', med siddhartha, TDI 7.0 cm/sec >=7.0 Decel time 282 ms ------- E/e', med siddhartha, 12 Peak grad, D 2.7 mm Hg --- ---- TDI Peak E/A ratio 0.9 ------- E', avg, TDI 7.0 cm/sec E/e', avg, TDI 12 <=14 Pulmonic valve Value Ref Peak v, S 0.84 m/sec ------- LVOT Value Ref Peak grad, S 3.0 mm Hg ------- Peak easton, S 1.26 m/sec VTI, S 28.0 cm Tricuspid valve Value Ref Peak grad, S 6 mm Hg TR peak v 2.5 m/sec <=2.8 Mean grad, S 3 mm Hg Peak RV-RA grad, S 25 mm Hg ------- Ventricular septum Value Ref Aortic root Value Ref IVS, ED (H) 1.1 cm 0.6 - 0.9 Root diam 2.7 cm <3.8 Root max diam, ED 2.7 cm <3.8 Right ventricle Value Ref Root max diam/bsa, 1.9 cm/m^2 1.4 - JUDY, LAX 3.4 cm ED 2.2 JUDY minor ax, A4C 3.0 cm 1.9 - 3.5 mid Ascending aorta Value Ref Pressure, S 28 mm Hg AAo AP diam, S 2.8 cm ------- Left atrium Value Ref Pulmonary artery Value Ref AP dim, ES 3.30 cm 2.70 - Pressure, S 25.0 mm Hg ------- 3.80 ML dim, A4C 3.5 cm Inferior vena cava Value Ref SI dim, A4C 5.3 cm Diam 1.4 cm ------- Vol/bsa, ES, 1-p 27 ml/m^2 11 - 40 A4C Vol/bsa, ES, A/L 27 ml/m^2 16 - 34 Right atrium Value Ref SI dim, ES 5.1 cm 3.4 - 5.3 ML dim, ES, A4C 3.4 cm 2.6 - 4.4 SI dim, ES, A4C 5.1 cm 3.4 - 5.3 Estimated RAP 3 mm Hg Legend: (L) and (H) jorje values outside specified reference range. Prepared and electronically signed by Margarito Dumont MD 08/16/2019 11:49
--- NOTE | 2019-08-16 14:22 | PN ---
Subjective Date of Service: 08/16/19 Interval History: Ms. Myers is feeling a little better today. She is still "sore all over," mainly her buttocks. She denies CP, SOB, N/V, dizziness, headache. She is concerned about her ability to manage at home as she lives alone. Daughters at bedside agree. No concerns from nursing. Family History: Unchanged from Admission Social History: Unchanged from Admission Past Medical History: Unchanged from Admission Objective Active Medications: Acetaminophen (Tylenol Tab*) 650 mg PO Q6H PRN PAIN - MILD Aspirin (Aspirin Ec Tab*) 81 mg PO DAILY [facility] Atenolol (Tenormin Tab*) 25 mg PO DAILY [facility] Atorvastatin Calcium (Lipitor*) 40 mg PO 1700 [facility] Heparin Sodium (Porcine) (Heparin Vial(*)) 5,000 units SUBCUT Q8HR [facility] Hydralazine HCl (Apresoline Iv*) 5 mg IV SLOW PU Q6H PRN SBP > 185 Levothyroxine Sodium (Synthroid Tab*) 88 mcg PO DAILY@0600 [facility] Vital Signs - 8 hr 08/16/19 08/16/19 08:23 11:07 Temperature 97.8 F 98.0 F Pulse Rate 69 61 Respiratory 20 20 Rate Blood Pressure 130/61 105/55 (mmHg) O2 Sat by Pulse 95 100 Oximetry Oxygen Devices in Use Now: Nasal Cannula - 2L Appearance: Elderly female lying in bed in NAD Ears/Nose/Mouth/Throat: Mucous Membranes Moist Neck: NL Appearance and Movements; NL JVP, Trachea Midline Respiratory: Symmetrical Chest Expansion and Respiratory Effort, Clear to Auscultation Cardiovascular: NL Sounds; No Murmurs; No JVD, RRR Abdominal: NL Sounds; No Tenderness; No Distention Extremities: No Edema Neurological: Alert and Oriented x 3 Lines/Tubes/Other Access: Clean, Dry and Intact Peripheral IV Nutrition: Taking PO's Result Diagrams: 08/15/19 05:33 08/15/19 05:33 Assess/Plan/Problems-Billing Assessment: Ms. 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 - Patient Problems (1) Fall Comment: - Unclear what caused the fall as patient does not remember the event; mechanical vs syncope - No arrhythymias on tele - Echo shows EF 60-65%, no wall motion or significant valvular abnormalities - Check orthostatic VS - PT/OT evals pending (2) Elevated troponin Code(s): R79.89 - OTHER SPECIFIED ABNORMAL FINDINGS OF BLOOD CHEMISTRY Comment : - Peaked at 0.23, now trending down - No EKG changes or c/o CP or anginal equivalents - Suspect this was just secondary to the fall (3) Chronic respiratory failure with hypoxia Comment: - At baseline oxygen requirements of 2L at night (4) HTN (hypertension) Code(s): I10 - ESSENTIAL (PRIMARY) HYPERTENSION Comment: - Normotensive - Continue atenolol (5) COPD (chronic obstructive pulmonary disease) Code(s): J44.9 - CHRONIC OBSTRUCTIVE PULMONARY DISEASE, UNSPECIFIED Comment: - Not on home medication (6) HLD (hyperlipidemia) Code(s): E78.5 - HYPERLIPIDEMIA, UNSPECIFIED Comment: - Continue atorvastatin (7) Hypothyroidism Code(s): E03.9 - HYPOTHYROIDISM, UNSPECIFIED Comment: - Continue levothyroxine (8) DVT prophylaxis Comment: - Heparin SQ (9) DNR (do not resuscitate) Comment: Status and Disposition: Observation pending PT/OT evals. Anticipate d/c home vs [facility] when medically stable. Attending: Orville Lo
[2019-08-16] MEDS: Atorvastatin* 40 MG TAB PO SCH (17:23)
[2019-08-16] MEDS: guaiFENesin ER TAB 600 MG PO SCH (21:55)
[2019-08-17] MEDS: Heparin VIAL(*) 5000 UNITS/ML VIAL (FIVE THOUSAND) SUBCUT SCH ×3 (06:09→21:34)
[2019-08-17] MEDS: Levothyroxine TAB* 88 MCG TAB PO SCH (06:09)
[2019-08-17 06:47] LABS: Calcium 10.3 mg/dL (8.6-10.3)
[2019-08-17 06:53] LABS: BUN/Creatinine Ratio 18.3 (8-20); EGFR African American 94.2 (>60); EGFR Non-African American 77.9 (>60)
[2019-08-17] MEDS: Atenolol TAB* 25 MG PO SCH (08:28)
[2019-08-17] MEDS: guaiFENesin ER TAB 600 MG PO SCH ×2 (08:28→21:34)
[2019-08-17] MEDS: Aspirin EC TAB* 81 MG TAB.EC PO SCH (08:28)
--- NOTE | 2019-08-17 14:20 | PN ---
Subjective Date of Service: 08/17/19 Interval History: Ms. Myers is feeling generally poor today. Unable to report any specific complaints. She denies CP, SOB, N/V. Good appetite. She reports she cannot go home today as she does not have anyone at home to help her, but has everything set up for tomorrow. No concerns from nursing. Family History: Unchanged from Admission Social History: Unchanged from Admission Past Medical History: Unchanged from Admission Objective Active Medications: Acetaminophen (Tylenol Tab*) 650 mg PO Q6H PRN PAIN - MILD Aspirin (Aspirin Ec Tab*) 81 mg PO DAILY [facility] Atenolol (Tenormin Tab*) 25 mg PO DAILY [facility] Atorvastatin Calcium (Lipitor*) 40 mg PO 1700 [facility] Guaifenesin (Mucinex*) 600 mg PO BID [facility] Heparin Sodium (Porcine) (Heparin Vial(*)) 5,000 units SUBCUT Q8HR [facility] Hydralazine HCl (Apresoline Iv*) 5 mg IV SLOW PU Q6H PRN SBP > 185 Levothyroxine Sodium (Synthroid Tab*) 88 mcg PO DAILY@0600 [facility] Vital Signs - 8 hr 08/17/19 08/17/19 07:28 11:20 Temperature 98.1 F 98.6 F Pulse Rate 72 56 Respiratory 16 20 Rate Blood Pressure 136/62 113/51 (mmHg) O2 Sat by Pulse 99 99 Oximetry Oxygen Devices in Use Now: Nasal Cannula - 2L Appearance: Elderly female sitting in bed in NAD Ears/Nose/Mouth/Throat: Mucous Membranes Moist Neck: NL Appearance and Movements; NL JVP, Trachea Midline Respiratory: Symmetrical Chest Expansion and Respiratory Effort, Clear to Auscultation Cardiovascular: NL Sounds; No Murmurs; No JVD Abdominal: NL Sounds; No Tenderness; No Distention Extremities: No Edema Neurological: Alert and Oriented x 3 Lines/Tubes/Other Access: Clean, Dry and Intact Peripheral IV Nutrition: Taking PO's Result Diagrams: 08/15/19 05:33 08/17/19 05:27 Assess/Plan/Problems-Billing Assessment: Ms. 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 - Patient Problems (1) Fall Comment: - Unclear what caused the fall as patient does not remember the event; mechanical vs syncope - Not orthostatic - No arrhythymias on tele - Echo shows EF 60-65%, no wall motion or significant valvular abnormalities - PT/OT eval today (2) Elevated troponin Code(s): R79.89 - OTHER SPECIFIED ABNORMAL FINDINGS OF BLOOD CHEMISTRY Comment : - Peaked at 0.23, now trending down - No EKG changes or c/o CP or anginal equivalents - Suspect secondary to fall (3) Chronic respiratory failure with hypoxia Comment: - At baseline oxygen requirements of 2L at night (4) HTN (hypertension) Code(s): I10 - ESSENTIAL (PRIMARY) HYPERTENSION Comment: - Normotensive - Continue atenolol (5) COPD (chronic obstructive pulmonary disease) Code(s): J44.9 - CHRONIC OBSTRUCTIVE PULMONARY DISEASE, UNSPECIFIED Comment: - Not on home medication (6) HLD (hyperlipidemia) Code(s): E78.5 - HYPERLIPIDEMIA, UNSPECIFIED Comment: - Continue atorvastatin (7) Hypothyroidism Code(s): E03.9 - HYPOTHYROIDISM, UNSPECIFIED Comment: - Continue levothyroxine (8) DVT prophylaxis Comment: - Heparin SQ (9) DNR (do not resuscitate) Comment: Status and Disposition: Observation. D/c home tomorrow. Attending: Orville Lo
[2019-08-17] MEDS: Atorvastatin* 40 MG TAB PO SCH (16:53)
[2019-08-17] MEDS: Albuterol HFA INHALER* 8 gm MDI INH SCH (20:28)
[2019-08-18] MEDS: Levothyroxine TAB* 88 MCG TAB PO SCH (05:05)
[2019-08-18] MEDS: Heparin VIAL(*) 5000 UNITS/ML VIAL (FIVE THOUSAND) SUBCUT SCH (05:05)
[2019-08-18] MEDS: Albuterol HFA INHALER* 8 gm MDI INH SCH ×3 (08:44→15:20)
[2019-08-18] MEDS: guaiFENesin ER TAB 600 MG PO SCH (08:47)
[2019-08-18] MEDS: Aspirin EC TAB* 81 MG TAB.EC PO SCH (08:47)
[2019-08-18] MEDS: Atenolol TAB* 25 MG PO SCH (08:47)
[2019-08-18 11:50] VITALS: BP 121/59
--- NOTE | 2019-08-18 14:54 | DS ---
CC: Dr. Amber Shultz * DISCHARGE SUMMARY: DATE OF ADMISSION: 08/15/19 DATE OF DISCHARGE: 08/18/19 PRIMARY CARE PROVIDER: Dr. Amber Shultz. ATTENDING PHYSICIAN: Dr. Orville Lo.* (DICTATED BY ADELAIDA CM NP) PRIMARY DIAGNOSES: 1. Fall, unclear etiology. 2. Elevated troponin. SECONDARY DIAGNOSES: 1. Chronic hypoxic respiratory failure. 2. Hypertension. 3. Chronic obstructive pulmonary disease. 4. Hyperlipidemia. 5. Hypothyroidism. STUDIES WHILE IN THE HOSPITAL: 1. EKG on 08/15/19 shows normal sinus rhythm with a rate of 87. No obvious ST changes, though this EKG is of very poor quality due to artifact. 2. Brain CT on 08/15/19 reads as no acute intracranial findings. 3. Chest x-ray on 08/15/19 reads as no active cardiopulmonary disease. 4. EKG on 08/15/19 shows normal sinus rhythm with a first-degree AV block and a rate of 69, QTc 410. 5. EKG on 08/15/19 shows normal sinus rhythm with a first-degree AV block and a rate of 69, QTc 455. 6. Transthoracic echocardiogram on 08/15/19 reads as the left ventricular systolic function is normal. The estimated ejection fraction is 60% to 65%. Wall motion is normal and there are no regional wall motion abnormalities. Right ventricular systolic function is normal. There is mild mitral regurgitation. There is no evidence of aortic stenosis. There is trace aortic regurgitation. There is mild tricuspid regurgitation. There is no significant pericardial effusion. Systolic pressure in the pulmonary arteries is within normal range. No prior studies available for comparison. 7. EKG on 08/16/19 shows normal sinus rhythm with a rate of 69, QTc 407. HISTORY OF PRESENT ILLNESS AND HOSPITAL COURSE: Ms. Myers is an 89-year-old female with past medical history of ampullary cancer, status post Whipple; hypertension; COPD, on oxygen at night; who presented to the emergency room on 08/15/19 after a fall. Please see the history and physical by Marquita Jang NP, for a complete summary of the events leading up to this hospitalization. In short, the patient lives alone. She got up in the morning and subsequently fell. She could not remember the specific events of this fall and was not sure why she fell, but thought that she had tripped on a rug. She did not think that she lost any consciousness. In the emergency room, she was noted to have an elevated troponin of 0.12 and she was noted to be hypertensive with systolic pressures up into the 170s. She was admitted by the hospitalist service for further evaluation. The patient's troponins were trended and ultimately peaked at 0.23, though last troponin checked on 08/16/19 was down to 0.18. She was monitored on telemetry and had no evidence of arrhythmias. She has been in normal sinus rhythm throughout this hospitalization. EKG showed no obvious abnormalities and there were no abnormalities noted on echo, so at this point, it is suspected that the elevated troponin was secondary to her traumatic fall and not any acute coronary process. Regarding her fall, the patient was seen by Physical Therapy, who did feel as though the patient would be safe going home with assistance and the use of a walker to reduce her fall risk. Her ambulation status was difficult to assess due to the patient's complaints of shortness of breath, though she has no acute pulmonary process and her shortness of breath is likely baseline, secondary to her chronic obstructive pulmonary disease. The patient was stable for discharge home yesterday, though she noted that she would not be ready for discharge until the following day that being today as she had things set up at home so that she would have family present with her to assist her. She had an uneventful night. This morning, when I went to see the patient, she again told me that she would be ready for discharge tomorrow. I did speak with the patient's daughter, Cheryle, who confirmed that they are willing and able to take the patient home today. On exam, she is alert and oriented. She has no focal neurological deficits. Her heart has a regular rate and rhythm without murmurs, rubs, or gallops. Her lungs are clear, but diminished to auscultation without rhonchi, wheezes, or rales. There is no edema. Physical exam is otherwise benign. Ms. Myers is stable for discharge today. Vital signs are as follows: Temp 98.1 , heart rate 64, respiratory rate 20, oxygen saturation 94% on 2 L, blood pressure 121/59. DISCHARGE MEDICATIONS: New medication: 1. Acetaminophen 650 mg p.o. q.6 hours p.r.n. pain. Continued medications: 1. Albuterol MDI 2 puffs t.i.d. 2. Atenolol 25 mg p.o. daily. 3. Levothyroxine 88 mcg p.o. daily. 4. Mucinex 600 mg p.o. b.i.d. p.r.n. congestion. 5. Multivitamin 1 tab p.o. daily. Discontinued medication: 1. Ibuprofen. DISCHARGE PLAN: Ms. Myers will be discharged home in the care of her family. Activity will be as tolerated with a rolling walker. Diet will be heart- healthy. Medications are noted above. I think it is alvarez that the patient stop taking ibuprofen at this point and she is recommended to take acetaminophen instead, as ibuprofen does have some negative cardiovascular effects, and at her age, I think it is unwise to take this risk. The patient was placed on a baby aspirin daily while she was here in the hospital. At this point, I will leave it up to her primary care provider to determine if the patient should continue taking this going forward. Her other medications remained unchanged as noted above. The patient should follow up with her primary care provider in the next 4 to 7 days. She has been advised to return to the hospital or nearest emergency room for any worsening of symptoms, shortness of breath, lightheadedness, dizziness, chest discomfort, high fevers, chills, night sweats , loss of consciousness, or any other worrisome signs or symptoms. DISCHARGE CONDITION: Stable. DISCHARGE DISPOSITION: Home. This is a summarized report of a complex medical history and hospital stay. For further details, please see the entire medical record. TIME SPENT: Approximately 45 minutes was spent on this discharge. ADELAIDA CM, TICKET COUNTER [id number]/CPS #: [id number] KHADAR
== END 2019-08-18 15:37 | disposition home or self-care (01) ==
LOC: ED 04:08 → MEDTELE 07:43
PROVIDERS: ADMIT Internal Medicine; ATTEND Internal Medicine
DX: R79.89 Other specified abnormal findings of blood chemistry (principal); Z91.81 History of falling; J96.11 Chronic respiratory failure with hypoxia; I10 Essential (primary) hypertension; J44.9 Chronic obstructive pulmonary disease, unspecified; E78.5 Hyperlipidemia, unspecified; E03.9 Hypothyroidism, unspecified; Z79.899 Other long term (current) drug therapy; Z88.0 Allergy status to penicillin; R51 Headache; Z87.891 Personal history of nicotine dependence; M19.90 Unspecified osteoarthritis, unspecified site; R94.31 Abnormal electrocardiogram [ECG] [EKG]
CPT/HCPCS: 36415; 70450; 71045; 80048; 80053; 80061; 81003; 81015; 83605; 83735; 84443; 84484; 85025; 85610; 87077; 87086; 93005; 93306; 94640; 96361; 96365; 96366; 96372; 99284; A9270-GY; G0378; G8978-GP-CJ; G8979-GP-CI; G8987-GO-CJ; G8988-GO-CI; J1644; J3475

== ENCOUNTER 2020-01-20 19:17 | Observation (INO) | payer MEDICARE ==
[2020-01-20 19:40] LABS: ABS Lymphocytes 0.6 10^3/ul (1.0-4.8); ABS Monocytes 0.4 10^3/ul (0-0.8); ABS Neutrophils 5.2 10^3/ul (1.5-7.7); Eosinophil % 0.7 %; Hematocrit 35 % (35-47); Hemoglobin 11.9 g/dL (12.0-16.0); Mean Corpuscular HGB Conc 34 g/dL (31-36); Mean Corpuscular Hemoglobin 32 pg (27-31); Mean Corpuscular Volume 95 fL (80-97); Mean Platelet Volume 7.5 fL (7.4-10.4); Platelet Count 220 10^3/uL (150-450); Red Blood Count 3.71 10^6 /uL (3.70-4.87); Red Cell Distribution Width 14 % (10-15); White Blood Count 6.3 10^3/uL (3.5-10.8)
[2020-01-20 19:57] LABS: ALT 16 U/L (7-52); AST 22 U/L (13-39); Albumin 4.3 g/dL (3.2-5.2); Albumin/Globulin Ratio 1.6 (1-3); Alkaline Phosphatase 76 U/L (34-104); Anion Gap 8 mmol/L (2-11); BUN/Creatinine Ratio 15.3 (8-20); Blood Urea Nitrogen 15 mg/dL (6-24); C Reactive Protein < 1.00 mg/L (<8.01); CO2 Carbon Dioxide 25 mmol/L (22-32); Calcium 10.5 mg/dL (8.6-10.3); Chloride 97 mmol/L (101-111); EGFR Non-African American 53.7 (>60); Globulin 2.7 g/dL (2-4); Glucose 104 mg/dL (70-100); Potassium 4.2 mmol/L (3.5-5.0); Sodium 130 mmol/L (135-145)
[2020-01-20] MEDS ORDERED: Labetalol IV* 5 MG/ML 20 ML VIAL IV PUSH ONE ×2 (20:07→20:45)
--- NOTE | 2020-01-20 20:09 | ED ---
GI/ HPI - HPI Summary HPI Summary: Patient is an 89 year-old female presenting to [facility] Emergency Department with a chief complaint of dysfunctional colostomy bag for the last 24 hours. She reports that there has been no excretion from the colostomy bag, which is located in the center of the abdomen. She endorses suprapubic pain that she attributes to gas entrapment as she feels relief of the pain with eructation. Pain is currently rated 5/10 in severity. 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 She denies any nausea, vomiting, fever, cough, shortness of breath, or chest pain. Patient noted to be hypertensive in the room, although she is medication-compliant with her hypertension medication which was last taken this morning. 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 Former smoker, daily alcohol use, no substance use. Medications reviewed. Allergies noted. - History of Current Complaint Chief Complaint: EDAbdPain Time Seen by Provider: 01/20/20 19:57 Stated Complaint: COLOSTOMY STOPPED WORKING PER PT Hx Obtained From: Patient Onset/Duration: Started Hours Ago - 24, Still Present Timing: Constant Severity: Moderate Current Severity: Moderate Pain Intensity: 5 Location of Pain: Suprapubic Pain Characteristics: Aching Associated Signs and Symptoms: Positive: Abdominal Pain. Negative: Nausea, Vomiting, Fever, Cough, Chest Pain, Other: - shortness of breath Aggravating Factor(s): Nothing Alleviating Factor(s): Nothing - Additional Pertinent History Primary Care Physician: [id number] - Allergy/Home Medications Allergies/Adverse Reactions: Allergies Allergy/AdvReac Type Severity Reaction Status Date / Time Penicillins Allergy Swelling Verified 01/20/20 19:25 Of Face,Lips,& Throat Home Medications: Home Medications Atenolol TAB* [Tenormin TAB* 25 MG] 25 mg PO BID 10/08/18 [History Confirmed ] Multivitamins/Minerals TAB* [Theragran/minerals TAB*] 1 tab PO DAILY 10/08/18 [ History Confirmed 01/20/20] guaiFENesin ER TAB [Mucinex*] 600 mg PO BID PRN 10/08/18 [History Confirmed ] Levothyroxine TAB* [Synthroid 88 MCG TAB*] 88 mcg PO DAILY 08/15/19 [History Confirmed 01/20/20] Albuterol HFA INHALER* [Ventolin HFA Inhaler*] 2 puff INH TID PRN 08/17/19 [ History Confirmed 01/20/20] Acetaminophen TAB* [Tylenol TAB*] 650 mg PO Q6H PRN tab 08/18/19 [Rx Confirmed 01/20/20] PMH/Surg Hx/FS Hx/Imm Hx Endocrine/Hematology History: Reports: Hx Blood Transfusions, Hx Thyroid Disease , Hx Anemia Denies: Hx Anticoagulant Therapy, Hx Blood Disorders, Hx Diabetes, Hx Systemic Lupus Erythematosus, Hx Unexplained Bleeding Cardiovascular History: Reports: Hx Hypertension Denies: Hx Aneurysm, Hx Angina, Hx Angioplasty, Hx Auto Implanted Cardiovert Defib, Hx Cardiac Arrest, Hx Cardiomegaly, Hx Congenital Heart Disease, Hx Congestive Heart Failure, Hx Coronary Artery Disease, Hx Deep Vein Thrombosis, Hx Embolism, Hx Hypercholesterolemia, Hx Pacemaker/ICD Respiratory History: Reports: Hx Chronic Obstructive Pulmonary Disease (COPD) - 2L O2 at night, Hx Lung Cancer, Hx Pneumonia, Hx Seasonal Allergies, Other Respiratory Problems/Disorders Denies: Hx Asthma, Hx Pleural Effusion, Hx Pulmonary Edema, Hx Pulmonary Embolism GI History: Reports: Hx Crohn's Disease, Hx Diverticulosis, Hx Irritable Bowel, Hx Obstructive Bowel, Hx Ileostomy Denies: Hx Cirrhosis, Other GI Disorders - COLECTOMY, COLOSTOMY History: Denies: Hx Dialysis, Hx Renal Disease, Other Problems/Disorders Musculoskeletal History: Reports: Hx Back Problems - spinal stenosis, Other Musculoskeletal History - Olecranon bursitis Denies: Hx Arthritis, Hx Rheumatoid Arthritis, Hx Fibromyalgia Sensory History: Reports: 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, Hx Contacts or Glasses - at home., Hx Legally Blind - L eye, Hx Vision Problem, Hx Hearing Aid - at home., Hx Hearing Problem Denies: Hx Eye Injury, Hx Eye Prosthesis, Hx Deafness, Other Sensory Impairments Opthamlomology History: Reports: 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, Hx Contacts or Glasses - at home., Hx Legally Blind - L eye, Hx Vision Problem Denies: Hx Eye Injury, Hx Eye Prosthesis, Other Sensory Impairments Neurological History: Reports: Other Neuro Impairments/Disorders - PAIN CLINIC PT Denies: Hx Dementia, Hx Developmental Delay, Hx Headaches, Hx Migraine, Hx Nerve Disease, Hx Seizures, Hx Spinal Cord Injury, Hx Transient Ischemic Attacks (TIA) Psychiatric History: Denies: Hx Panic Disorder - Cancer History Cancer Type, 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 Hx Chemotherapy: No Hx Radiation Therapy: No Hx Palliative Cancer Treatment: No - Surgical History Surgical History: Yes Surgery Procedure, Year, and Place: whipple procedure 2000, cataracts,bowel abcess, regional enteritis large intestine trasnverse colectomy/colostomy 2004, fistula to bladder repair, hysterectomy Hx Anesthesia Reactions: No Infectious Disease History: No Infectious Disease History: Denies: Hx Clostridium Difficile, Hx Hepatitis, Hx Human Immunodeficiency Virus (HIV), Hx of Known/Suspected MRSA, Hx Shingles, Hx Tuberculosis, Hx Known/ Suspected VRE, Hx Known/Suspected VRSA, History Other Infectious Disease, Traveled Outside the [place] in Last 30 Days - Family History Known Family History: Positive: Cardiac Disease, Other - CA Negative: Diabetes - Social History Alcohol Use: Daily Alcohol Amount: 4-5 DRINKS Hx Substance Use: No Substance Use Type: Reports: None Hx Tobacco Use: Yes Smoking Status (MU): Former Smoker Type: Cigarettes Have You Smoked in the Last Year: No Review of Systems Negative: Fever Negative: Chest Pain Negative: Shortness Of Breath, Cough Positive: Abdominal Pain - suprapubic All Other Systems Reviewed And Are Negative: Yes Physical Exam - Summary Physical Exam Summary: VITAL SIGNS: Reviewed. GENERAL: Patient is a well-developed and nourished elderly female who is lying comfortable in the stretcher. Patient is not in any acute respiratory distress. There is no nausea or vomiting. HEAD AND FACE: No signs of trauma. No ecchymosis, hematomas or skull depressions. No sinus tenderness. EYES: PERRLA, EOMI x 2, No injected conjunctiva, no nystagmus. EARS: Hearing grossly intact. Ear canals and tympanic membranes are within normal limits. MOUTH: Oropharynx within normal limits. NECK: Supple, trachea is midline, no adenopathy, no JVD, no carotid bruit, no c- spine tenderness, neck with full ROM. CHEST: Symmetric, no tenderness at palpation. LUNGS: Clear to auscultation bilaterally. No wheezing or crackles. CVS: Regular rate and rhythm, S1 and S2 present, no murmurs or gallops appreciated. ABDOMEN: Soft, non-tender. No signs of distention. No rebound, no guarding, and no masses palpated. Decreased bowel sounds. Colostomy bag is empty, located in the center of the abdomen. EXTREMITIES: FROM in all major joints, no edema, no cyanosis or clubbing. NEURO: Alert and oriented x 3. No acute neurological deficits. Speech is normal and follows commands. SKIN: Dry and warm. Triage Information Reviewed: Yes Vital Signs On Initial Exam: Initial Vitals Temp Pulse Resp BP Pulse Ox 97.9 F 103 18 223/121 93 01/20/20 19:20 01/20/20 19:20 01/20/20 19:20 01/20/20 19:20 01/20/20 19:20 Vital Signs Reviewed: Yes Procedures - Sedation Patient Received Moderate/Deep Sedation with Procedure: No Diagnostics - Vital Signs Vital Signs Temp Pulse Resp BP Pulse Ox 01/20/20 19:56 210/104 01/20/20 19:52 92 100 01/20/20 19:50 90 223/116 99 01/20/20 19:20 97.9 F 103 18 223/121 93 - Laboratory Lab Results: Lab Results 01/20/20 01/20/20 Range/Units 19:34 19:34 WBC 6.3 (3.5-10.8) 10^3/uL RBC 3.71 (3.70-4.87) 10^6 /uL Hgb 11.9 L (12.0-16.0) g/dL Hct 35 (35-47) % MCV 95 (80-97) fL MCH 32 H (27-31) pg MCHC 34 (31-36) g/dL RDW 14 (10-15) % Plt Count 220 (150-450) 10^3/uL MPV 7.5 (7.4-10.4) fL Neut % (Auto) 82.8 % Lymph % (Auto) 9.0 % Starr % (Auto) 6.9 % Eos % (Auto) 0.7 % Baso % (Auto) 0.6 % Absolute Neuts (auto) 5.2 (1.5-7.7) 10^3/ul Absolute Lymphs (auto) 0.6 L (1.0-4.8) 10^3/ul Absolute Monos (auto) 0.4 (0-0.8) 10^3/ul Absolute Eos (auto) 0.0 (0-0.6) 10^3/ul Absolute Basos (auto) 0.0 (0-0.2) 10^3/ul Absolute Nucleated RBC 0.0 10^3/ul Nucleated RBC % 0.0 Sodium 130 L (135-145) mmol/L Potassium 4.2 (3.5-5.0) mmol/L Chloride 97 L (101-111) mmol/L Carbon Dioxide 25 (22-32) mmol/L Anion Gap 8 (2-11) mmol/L BUN 15 (6-24) mg/dL Creatinine 0.98 H (0.51-0.95) mg/dL Est GFR ( Amer) 65.0 (>60) Est GFR (Non-Af Amer) 53.7 (>60) BUN/Creatinine Ratio 15.3 (8-20) Glucose 104 H (70-100) mg/dL Calcium 10.5 H (8.6-10.3) mg/dL Total Bilirubin 0.70 (0.2-1.0) mg/dL AST 22 (13-39) U/L ALT 16 (7-52) U/L Alkaline Phosphatase 76 (34-104) U/L C-Reactive Protein < 1.00 (<8.01) mg/L Total Protein 7.0 (6.4-8.9) g/dL Albumin 4.3 (3.2-5.2) g/dL Globulin 2.7 (2-4) g/dL Albumin/Globulin Ratio 1.6 (1-3) Lipase 21 (11.0-82.0) U/L Result Diagrams: 01/20/20 19:34 01/20/20 19:34 Lab Statement: Any lab studies that have been ordered have been reviewed, and results considered in the medical decision making process. - Radiology Abdomen X-Ray Radiology Interpretation Completed By: ED Physician Summary of Radiographic Findings: Increased amount of stool. No air fluid levels. Dr. Wilkerson has reviewed and interpreted this imaging scan. Pending official read. - CT Abdomen/Pelvis CT CT Interpretation Completed By: Radiologist Summary of CT Findings: Impression: 1. Partial gastrectomy with gastrojejunostomy and question of Whipple procedure. 2. There has been prior holecystectomy and hysterectomy with pneumobilia. 3. Right upper quadrant ostomy site, probably colostomy with no proximal colonic distention. 4. Borderline contrast filled small bowel which may reflect a low-grade partial obstruction. Dr. Wilkerson has reviewed this report. - EKG 1950 Cardiac Rate: NL - 92 BPM EKG Rhythm: Sinus Rhythm Summary of EKG Findings: An EKG at 1950 reveals sinus rhythm at rate of [address] elevations. Poor quality EKG. Low voltage. Dr. Wilkerson has reviewed and interpreted this EKG/ GIGU Course/Dx - Course Assessment/Plan: Patient is an 89 year-old female presenting to [facility] [place] [facility] Emergency Department with a chief complaint of dysfunctional colostomy bag for the last 24 hours. She reports that there has been no excretion from the colostomy bag, which is located in the center of the abdomen. She endorses suprapubic pain that she attributes to gas entrapment as she feels relief of the pain with eructation. Pain is currently rated 5/10 in severity. 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 She denies any nausea, vomiting, fever, cough, shortness of breath, or chest pain. Patient noted to be hypertensive in the room, although she is medication-compliant with her hypertension medication which was last taken this morning. 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 Former smoker, daily alcohol use, no substance use. Medications reviewed. Allergies noted. In the ED course the patient was placed on a electronic data interchange specialist, IV access was obtained, IV fluids started. Past medical records reviewed. Blood test w/o a significant abnormality except for hemoglobin 11.9, sodium 130, chloride 97, glucose 104, calcium 10.5. Abdomen x- ray impression: Increased amount of stool without any air-fluid levels. The patient is hypertensive, therefore she was given labetalol IV. Abdominopelvic CT Impression: 1. Partial gastrectomy with gastrojejunostomy and question of Whipple. procedure. 2. There has been prior cholecystectomy and hysterectomy with pneumobilia. 3. Right upper quadrant ostomy site, probably colostomy with no proximal colonic distention. 4. Borderline contrast filled small bowel which may reflect a low-grade partial obstruction. I discussed the case with Dr. Pickard from surgery, and she reviewed in the pelvic CT. She is not sure that the patient has a small bowel obstruction. She thinks that with the contrast maybe the patient would be passing stool and feeling better. She recommends for the patient to be admitted, and if she is negative the hospitalist will call her for a consult. Patients blood pressure improved to 150/77. I discussed my physical exam and test results with Dr. Valencia from the hospitalist services, and she agrees to admit the patient to her services. The patient is hemodynamically stable alert and oriented x 3. - Diagnoses Provider Diagnoses: Uncontrolled hypertension, Partial small bowel obstruction - Physician Notifications Discussed Care Of Patient With: Anika Pickard - surgery Time Discussed With Above Provider: 23:10 Instructed by Provider To: Other - I discussed the patients case with Dr. Pickard. She recommends admission to the hospitalist, and she will consult for the patient if she does not improve with plan for small bowel obstruction procedure. Dr. Valencia from the hospitalist services accepts the patient for admission [[id number]]. Discharge ED - Sign-Out/Discharge Documenting (check all that apply): Patient Departure - Patient accepted for admission by Dr. Valencia. - Discharge Plan Condition: Stable Disposition: ADMITTED TO [facility] - Billing Disposition and Condition Condition: STABLE Disposition: Admitted to [facility] - Attestation Statements Document Initiated by Urbano: Yes Documenting Scribe: Nikki Arias Provider For Whom Urbano is Documenting (Include Credential): Francisco Wilkerson MD Scribjyoti Attestation: Nikki Rodriguez, scribed for Frnacisco Wilkerson MD on 01/21/20 at 0359. Scribe Documentation Reviewed: Yes Provider Attestation: The documentation as recorded by the Nikki catalan accurately reflects the service I personally performed and the decisions made by me, Francisco Wilkerson MD Status of Scribe Document: Viewed
[2020-01-20] MEDS ORDERED: Morphine 4 MG/ML VIAL (1 ml) 4 MG/ML VIAL IV ONE (21:32)
[2020-01-20] MEDS ORDERED: Ondansetron INJ* 2 MG/ML VIAL IV ONE (21:32)
[2020-01-20] MEDS ORDERED: Iodixanol* (CONTRAST) 320 MG/ML 100 ML SDV IV ONE (22:16)
[2020-01-21] MEDS ORDERED: Acetaminophen TAB* 325 MG PO PRN (00:05)
[2020-01-21] MEDS ORDERED: Morphine INJ* 2 MG/ML 1 ML SYRINGE (TWO MG - NEW SYRINGE VERSION) IV PRN (00:05)
[2020-01-21] MEDS ORDERED: Albuterol HFA INHALER* 8 gm MDI INH PRN (00:08)
[2020-01-21] MEDS ORDERED: NS 0.9% 1000 ML** 1,000 ML IV SCH (00:15)
[2020-01-21 01:09] LABS: Urine Appearance Clear; Urine Bilirubin Negative (Negative); Urine Blood Negative (Negative); Urine Color Yellow; Urine Glucose Negative (Negative); Urine Ketones Negative (Negative); Urine Nitrite Negative (Negative); Urine Protein Negative (Negative); Urine Specific Gravity 1.018 (1.010-1.030); Urine Urobilinogen Negative (Negative)
[2020-01-21 01:22] LABS: Urine Bacteria Absent (Absent); Urine Red Blood Cell Absent (Absent); Urine Squamous Epithelial Cell Present (Absent); Urine White Blood Cell Trace(0-5/hpf) (Absent)
--- NOTE | 2020-01-21 02:30 | HP ---
CC: Dr. Shultz; Dr. Jo * HISTORY AND PHYSICAL: DATE OF ADMISSION: 01/21/20 PRIMARY CARE PROVIDER: Dr. Shultz. ONCOLOGIST: Dr. Jo. CHIEF COMPLAINT: No colostomy output. 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 She had described vague abdominal discomfort, but no pain per se. A CT of the abdomen was performed in the ED and showed partial small bowel obstruction. She is going to be placed on overnight observation with a diagnosis of small bowel obstruction. PAST MEDICAL HISTORY: 1. Ampullary cancer, status post Whipple procedure. 2. Lung cancer. 3. Hypertension. 4. DJD. 5. Small bowel obstruction, status post colostomy in the past. 6. COPD, on home oxygen at night at 2 L. 7. Hypothyroidism. 8. Cholecystectomy. 9. Hysterectomy. MEDICATIONS: At home, include: 1. Guaifenesin 600 mg daily p.r.n. 2. Multivitamin 1 tablet daily. 3. Atenolol 25 mg b.i.d. 4. Albuterol inhaler on a p.r.n. basis. 5. Levothyroxine 88 mcg daily. ALLERGIES: PENICILLIN. FAMILY HISTORY: Father with history of heart disease and COPD. Mother with history of colon cancer. SOCIAL HISTORY: The patient quit smoking over 20 years ago. There is no history of alcohol or drug use. She lives alone and is independent with her activities of daily living. Her daughters, Rocky, are her surrogates. REVIEW OF SYSTEMS: Please see history of present illness. All the remaining 12 systems were reviewed with the patient and were otherwise negative. PHYSICAL EXAMINATION GENERAL: The patient is a very pleasant 89-year-old female, who is in no acute distress. The patient is alert and oriented x3. VITAL SIGNS: Blood pressure 150/77, heart rate of 67 and regular, respiratory rate 22, oxygen saturation 99% on 2 L of oxygen nasal cannula, temperature 97.9. HEENT: Head is atraumatic, normocephalic. Eyes: Pupils are equal and reactive to light and accommodation. Oropharynx clear. Mucosa moist. NECK: Supple. No JVD. No bruits bilaterally. RESPIRATORY: Clear to auscultation bilaterally. CARDIOVASCULAR: Regular rate and rhythm. No murmur. ABDOMEN: Distended, soft, nontender. Bowel sounds are high pitched and present in bilateral lower quadrants, especially. Colostomy with pink stoma edges with some scant liquid of what appears to be contrast in the colostomy bag. EXTREMITIES: There is no edema. Pulses are +2 bilaterally. There is no clubbing or cyanosis. NEUROLOGIC: Speech clear. Cranial nerves II through XII grossly intact. Motor strength is 5/5 bilaterally. DIAGNOSTIC STUDIES/LAB DATA: White blood cell count 6.3, hemoglobin 11.9, hematocrit of 35, and platelets of 220. Sodium was 130, potassium 4.0, chloride 97, carbon dioxide 25, BUN 15, creatinine of 0.98. Liver function tests unremarkable. Calcium mildly elevated to 10.5. C- reactive protein is below 1. Urinalysis: Positive for +2 esterase, +3 wbc's, absent bacteria, absent nitrite. CT of abdomen and pelvis obtained on 01/20/20, impression: "Partial gastrectomy and gastrojejunostomy and with question of Whipple procedure. There has been prior cholecystectomy and hysterectomy with pneumobilia. Right upper quadrant ostomy site, probably a colostomy with no proximal colonic distention. Borderline contrast-filled small bowel which may reflect a low- grade partial obstruction." ASSESSMENT AND PLAN: 1. For partial small bowel obstruction, the patient is going to be placed on overnight observation. Hopefully, the CT contrast she received is going to help in relief of the patient's small bowel obstruction. I understand that the ED provider notified Dr. Pickard from Surgery, who stated that she is available for consult if that were to be needed in the future. An official consult to Surgery at this point was not placed and the patient is going to be observed on intravenous fluids and clear liquid diet with hopes of conservative treatment and resolution of the small bowel obstruction. 2. For the patient's hypothyroidism, her p.o. Synthroid is going to be continued. 3. For her hypertension, beta ton is going to be continued orally. 4. For DVT prophylaxis, the patient is going to be placed on heparin subcutaneously. 5. The patient's code status is full and her surrogates are her daughters as mentioned above. TIME SPENT: Approximately 62 minutes was spent on admission of this patient, more than half of that spent [id number] with the patient during the interview and physical exam. [id number]/[facility] #: [id number] KHADAR
[2020-01-21] MEDS: Heparin VIAL(*) 5000 UNITS/ML VIAL (FIVE THOUSAND) SUBCUT SCH ×3 (05:30→20:57)
[2020-01-21] MEDS: Levothyroxine TAB* 88 MCG TAB PO SCH (05:31)
[2020-01-21] MEDS: Atenolol TAB* 25 MG PO SCH ×2 (09:06→20:57)
--- NOTE | 2020-01-21 14:28 | PN ---
Subjective Date of Service: 01/21/20 Interval History: HD2 on 01/20 89 F with s/p whipple for Ampullary cancer and colostomy, COPD on 2l of oxygen, lung cancer, HTN, hypothyroid presented with no colostony output for 24 hours and abdominal discomfort. Found to have low-grade partial obstruction and hypertensive urgency. Overnight: Admitted Patient seen and examined at bedside. Patient had colostomy output-emptied today morning. Denies abdominal pain, nausea, vomiting. Tolerating PO well. Objective Active Medications: Acetaminophen (Tylenol Tab*) 650 mg PO Q4H PRN PRN Reason: PAIN-MILD/TEMP >/= 100.4 Albuterol (Ventolin Hfa Inhaler*) 2 puff INH TID PRN PRN Reason: SHORTNESS OF BREATH Atenolol (Tenormin Tab*) 25 mg PO BID [facility] Last Admin: 01/21/20 09:06 Dose: 25 mg Heparin Sodium (Porcine) (Heparin Vial(*)) 5,000 units SUBCUT Q8HR [facility] Last Admin: 01/21/20 05:30 Dose: 5,000 units Levothyroxine Sodium (Synthroid Tab*) 88 mcg PO DAILY@0600 [facility] Last Admin: 01/21/20 05:31 Dose: 88 mcg Morphine Sulfate (Morphine Inj (Syringe))*) 1 mg IV Q4H PRN PRN Reason: PAIN - SEVERE Vital Signs - 8 hr 01/21/20 01/21/20 01/21/20 07:32 09:00 12:01 Temperature 98.7 F 97.7 F Pulse Rate 66 59 Respiratory 22 22 18 Rate Blood Pressure 110/57 136/73 (mmHg) O2 Sat by Pulse 98 84 Oximetry Oxygen Devices in Use Now: Nasal Cannula Exam: GENERAL: Patient is a well-developed and nourished elderly female. Patient is not in any acute respiratory distress. HEAD AND FACE: No signs of trauma. No ecchymosis, hematomas or skull depressions. No sinus tenderness. EYES: PERRLA, EOMI x 2, No injected conjunctiva, no nystagmus. EARS: Hearing grossly intact. Ear canals and tympanic membranes are within normal limits. MOUTH: Oropharynx within normal limits. NECK: Supple, trachea is midline, no adenopathy, no JVD, no carotid bruit, no c- spine tenderness, neck with full ROM. CHEST: Symmetric, no tenderness at palpation. LUNGS: Clear to auscultation bilaterally. No wheezing or crackles. CVS: Regular rate and rhythm, S1 and S2 present, no murmurs or gallops appreciated. ABDOMEN: Soft, non-tender. No signs of distention. No rebound, no guarding, and no masses palpated. Normal bowel sounds. Colostomy has brown output. EXTREMITIES: FROM in all major joints, no edema, no cyanosis or clubbing. NEURO: Alert and oriented x 3. No acute neurological deficits. Speech is normal and follows commands. SKIN: Dry and warm. Result Diagrams: 01/20/20 19:34 01/20/20 19:34 Additional Lab and Data: Lab Results 01/20/20 01/20/20 Range/Units 19:34 19:34 WBC 6.3 (3.5-10.8) 10^3/uL RBC 3.71 (3.70-4.87) 10^6 /uL Hgb 11.9 L (12.0-16.0) g/dL Hct 35 (35-47) % MCV 95 (80-97) fL MCH 32 H (27-31) pg MCHC 34 (31-36) g/dL RDW 14 (10-15) % Plt Count 220 (150-450) 10^3/uL MPV 7.5 (7.4-10.4) fL Neut % (Auto) 82.8 % Lymph % (Auto) 9.0 % [place] % (Auto) 6.9 % Eos % (Auto) 0.7 % Baso % (Auto) 0.6 % Absolute Neuts (auto) 5.2 (1.5-7.7) 10^3/ul Absolute Lymphs (auto) 0.6 L (1.0-4.8) 10^3/ul Absolute Monos (auto) 0.4 (0-0.8) 10^3/ul Absolute Eos (auto) 0.0 (0-0.6) 10^3/ul Absolute Basos (auto) 0.0 (0-0.2) 10^3/ul Absolute Nucleated RBC 0.0 10^3/ul Nucleated RBC % 0.0 Sodium 130 L (135-145) mmol/L Potassium 4.2 (3.5-5.0) mmol/L Chloride 97 L (101-111) mmol/L Carbon Dioxide 25 (22-32) mmol/L Anion Gap 8 (2-11) mmol/L BUN 15 (6-24) mg/dL Creatinine 0.98 H (0.51-0.95) mg/dL Est GFR ( Amer) 65.0 (>60) Est GFR (Non-Af Amer) 53.7 (>60) BUN/Creatinine Ratio 15.3 (8-20) Glucose 104 H (70-100) mg/dL Calcium 10.5 H (8.6-10.3) mg/dL Total Bilirubin 0.70 (0.2-1.0) mg/dL AST 22 (13-39) U/L ALT 16 (7-52) U/L Alkaline Phosphatase 76 (34-104) U/L C-Reactive Protein < 1.00 (<8.01) mg/L Total Protein 7.0 (6.4-8.9) g/dL Albumin 4.3 (3.2-5.2) g/dL Globulin 2.7 (2-4) g/dL Albumin/Globulin Ratio 1.6 (1-3) Lipase 21 (11.0-82.0) U/L Assess/Plan/Problems-Billing Assessment: 89 F with s/p whipple for Ampullary cancer and colostomy, COPD on 2l of oxygen, lung cancer, HTN, hypothyroid presented with no colostony output for 24 hours and abdominal discomfort. Found to have low-grade partial obstruction and hypertensive urgency. - Patient Problems (1) SBO (small bowel obstruction) Current Visit: No Status: Acute Code(s): K56.69 - OTHER INTESTINAL OBSTRUCTION * DO NOT USE * SNOMED Code(s): 229804120 Comment: -Partial obstruction seen in CT. -Colostomy bag good output. -No sx at present. -Dc ivf -tolerating PO well (2) COPD (chronic obstructive pulmonary disease) Current Visit: No Status: Chronic Priority: High Code(s): J44.9 - CHRONIC OBSTRUCTIVE PULMONARY DISEASE, UNSPECIFIED SNOMED Code(s): 69816421 Comment: - No e/o exacerbation. - Continue inhalers (3) HTN (hypertension) Current Visit: No Status: Acute Code(s): I10 - ESSENTIAL (PRIMARY) HYPERTENSION SNOMED Code(s): 03430995 Comment: -was in hypertensive urgency; received labetalol - Normotensive now - Continue atenolol (4) Hypothyroidism Current Visit: No Status: Acute Code(s): E03.9 - HYPOTHYROIDISM, UNSPECIFIED SNOMED Code(s): 06399157 Comment: - Continue levothyroxine (5) DVT prophylaxis Current Visit: No Status: Acute Code(s): OPA5880 - SNOMED Code(s): 255893129 Comment: - Heparin SQ Status and Disposition: Observation Attending: Tammy Vital
--- NOTE | 2020-01-21 18:08 | DS ---
Resident Discharge Summary Discharge Summary: Date of Admission: 01/21/20 Date of Discharge: 01/22/20 Admitting MD: Jessy Valencia MD Attending MD: Tammy Vital DO Primary Care Physician: Amber Shultz MD Home Medications Medication Instructions Recorded Confirmed Type Atenolol TAB* [Tenormin TAB* 25 MG] 25 mg PO BID 10/08/18 01/20/20 History Multivitamins/Minerals TAB* 1 tab PO DAILY 10/08/18 01/20/20 History [Theragran/minerals TAB*] guaiFENesin ER TAB [Mucinex*] 600 mg PO BID PRN 10/08/18 01/20/20 History Levothyroxine TAB* [Synthroid 88 88 mcg PO DAILY 08/15/19 01/20/20 History MCG TAB*] Albuterol HFA INHALER* [Ventolin 2 puff INH TID PRN 08/17/19 01/20/20 History HFA Inhaler*] Acetaminophen TAB* [Tylenol TAB*] 650 mg PO Q6H PRN tab 08/18/19 01/20/20 Rx Disposition: Home Condition: Improved Primary Diagnosis: 1. Low grade partial small bowel obstruction 2. Hypertensive urgency Secondary Diagnosis: 1. COPD- on 2L of oxygen 2. Anemia 3. Hypothyroid 4. Hypertension Diagnostic Imagin. Abdomen Xray: Nonspecific Bowel gas pattern and large amount of stool throughout the colon. 2. Abdomen/Pelvis CT: Partial gastrectomy with gastrojejunostomy and question of Whipple procedure. Right upper quadrant ostomy site, probably colostomy with no proximal colonic distension. Borderline contrast filled small bowel which may reflect a low-grade partial obstruction. Prior cholecystectomy and hysterectomy with pneumobilia. Pertinent Laboratory Results: AT the time of discharge, her labs were Hb 11.9, ABC 6.3, Na 130, K 4.2, Creatinine 0.98 and lactic acid 1.3. 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 For details please review H and P dictated by Dr. Valencia. But in short patient was found to have low grade partial small bowel obstruction. For hospital stay, although short by problem are: 1. Partial Small Bowel Obstruction: Patient was kept on clear liquid diet and given Intravenous fluid. She had output on colostomy bag the night she was admitted and was asymptomatic. She was tolerating PO well with abdominal pain, discomfort, nausea or vomiting. 2. Hypertensive Urgency: Her BP was in 200's/100's on presentation and received 2 doses of Labetalol. Her BP was well-controlled thereafter. 3. COPD: She uses 2 Litre of oxygen at home and we continued it. At the time of discharge, patient was ambulating well, tolerating PO well and was asymptomatic. CONSULTATION: None Follow Up Instructions: THINGS TO FOLLOW UP STATUS POST DISCHARGE 1. She should follow up with her PCP and her BP should be followed closely.
[2020-01-22] MEDS: Heparin VIAL(*) 5000 UNITS/ML VIAL (FIVE THOUSAND) SUBCUT SCH (05:45)
[2020-01-22] MEDS: Levothyroxine TAB* 88 MCG TAB PO SCH (05:46)
[2020-01-22 07:16] VITALS: BP 102/57
[2020-01-22] MEDS: Atenolol TAB* 25 MG PO SCH (09:21)
--- NOTE | 2020-01-22 11:10 | PN ---
Hospitalist Progress Note Date of Service: 01/22/20 Pt seen this morning. Having normal output into ostomy appliance, stool and flatus. Emptying herself. Has been tolerating a regular diet. Denies any nausea , vomiting or abdominal pain. States she always has a mild discomfort at times to her LLQ and this is nothing new for her. Noted to have occasional cough during interview, states this is normal for her. Denies any unusual SOB, hx COPD with O2 use at home. Denies any headache, lightheadedness, fevers, chills, CP, unusual swelling, numbness/tingling. ROS: as above PE: Constitutional- NAD HEENT - clear oropharynx CV - RRR Respiratory - mild expiratory wheeze to HOLLY, diminished to LLL, RUL, RML, slightly diminished to RLL but no adventitious sounds upon auscultation Abdomen - hypoactive BS throughout, very mild firmness with palpation but non- distended and non-tender. Light brown soft stool noted in appliance. Extremities - no edema Neuro - A+OX4 Skin - stoma to mid upper abdomen, otherwise appears dry and intact Plan: See discharge summary, completed on 01/20 as it was anticipated that pt would be leaving today F/u with PCP in 1-2 weeks Continue with usual diet Return for any further significant abdominal symptoms, CP, unusual SOB
== END 2020-01-22 11:50 | disposition home or self-care (01) ==
LOC: ED 19:17 → SSU 01-21 00:05
PROVIDERS: ADMIT Internal Medicine; ATTEND Internal Medicine
DX: K56.600 Partial intestinal obstruction, unspecified as to cause (principal); I16.0 Hypertensive urgency; J44.9 Chronic obstructive pulmonary disease, unspecified; D64.9 Anemia, unspecified; I10 Essential (primary) hypertension; E03.9 Hypothyroidism, unspecified; M19.90 Unspecified osteoarthritis, unspecified site; Z99.81 Dependence on supplemental oxygen; Z79.890 Hormone replacement therapy; Z79.899 Other long term (current) drug therapy; Z85.118 Personal history of other malignant neoplasm of bronchus and lung; Z88.0 Allergy status to penicillin; Z87.891 Personal history of nicotine dependence
CPT/HCPCS: 36415; 74019; 74177; 80053; 81003; 81015; 83605; 83690; 85025; 86140; 87077; 87086; 87186; 93005; 96361; 96372; 96374; 96375; 96376; 99285; A9270-GY; G0378; J1644; J2270; J2405; Q9967

== ENCOUNTER 2020-01-31 22:28 | Emergency (ER) | payer MEDICARE ==
--- NOTE | 2020-01-31 22:40 | ED ---
Complex/Multi-Sys Presentation - HPI Summary HPI Summary: 89 year old F presenting to [facility] via EMS with a chief complaint of a fall earlier today. The patient rates the pain 0/10 in severity. Symptoms aggravated by nothing. Symptoms alleviated by nothing. The patient reports that she fell after walking to her freezer and was unable to get back up. Per EMS the patient hit her Life Alert button after her fall. Patient denies any headache, shortness of breath, or weakness in her arms or legs. She does not remember falling and is unsure if she lost consciousness. Medication list reviewed. Allergy list reviewed. - History Of Current Complaint Time Seen by Provider: 01/31/20 22:32 Hx Obtained From: Patient, EMS Onset/Duration: Sudden Onset Severity Currently: None Associated Signs And Symptoms: Positive: Other - Memory deficit. Negative: Weakness, Headache, SOB - Allergies/Home Medications Allergies/Adverse Reactions: Allergies Allergy/AdvReac Type Severity Reaction Status Date / Time Penicillins Allergy Swelling Verified 01/20/20 19:25 Of Face,Lips,& Throat Home Medications: Home Medications Atenolol TAB* [Tenormin TAB* 25 MG] 25 mg PO BID 10/08/18 [History Confirmed ] Multivitamins/Minerals TAB* [Theragran/minerals TAB*] 1 tab PO DAILY 10/08/18 [ History Confirmed 01/31/20] Levothyroxine TAB* [Synthroid 88 MCG TAB*] 88 mcg PO DAILY 08/15/19 [History Confirmed 01/31/20] Albuterol HFA INHALER* [Ventolin HFA Inhaler*] 2 puff INH TID PRN 08/17/19 [ History Confirmed 01/31/20] Acetaminophen TAB* [Tylenol TAB*] 650 mg PO Q6H PRN tab 08/18/19 [Rx Confirmed 01/31/20] PMH/Surg Hx/FS Hx/Imm Hx Endocrine/Hematology History: Reports: Hx Blood Transfusions, Hx Thyroid Disease , Hx Anemia Denies: Hx Anticoagulant Therapy, Hx Blood Disorders, Hx Diabetes, Hx Systemic Lupus Erythematosus, Hx Unexplained Bleeding Cardiovascular History: Reports: Hx Hypertension Denies: Hx Aneurysm, Hx Angina, Hx Angioplasty, Hx Auto Implanted Cardiovert Defib, Hx Cardiac Arrest, Hx Cardiomegaly, Hx Congenital Heart Disease, Hx Congestive Heart Failure, Hx Coronary Artery Disease, Hx Deep Vein Thrombosis, Hx Embolism, Hx Hypercholesterolemia, Hx Pacemaker/ICD Respiratory History: Reports: Hx Chronic Obstructive Pulmonary Disease (COPD) - 2L O2 at night, Hx Lung Cancer, Hx Pneumonia, Hx Seasonal Allergies, Other Respiratory Problems/Disorders Denies: Hx Asthma, Hx Pleural Effusion, Hx Pulmonary Edema, Hx Pulmonary Embolism GI History: Reports: Hx Crohn's Disease, Hx Diverticulosis, Hx Irritable Bowel, Hx Obstructive Bowel, Hx Ileostomy Denies: Hx Cirrhosis, Other GI Disorders - COLECTOMY, COLOSTOMY History: Denies: Hx Dialysis, Hx Renal Disease, Other Problems/Disorders Musculoskeletal History: Reports: Hx Back Problems - spinal stenosis, Other Musculoskeletal History - Olecranon bursitis Denies: Hx Arthritis, Hx Rheumatoid Arthritis, Hx Fibromyalgia Sensory History: Reports: 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, Hx Contacts or Glasses - at home., Hx Legally Blind - L eye, Hx Vision Problem, Hx Hearing Aid - at home., Hx Hearing Problem Denies: Hx Eye Injury, Hx Eye Prosthesis, Hx Deafness, Other Sensory Impairments Opthamlomology History: Reports: 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, Hx Contacts or Glasses - at home., Hx Legally Blind - L eye, Hx Vision Problem Denies: Hx Eye Injury, Hx Eye Prosthesis, Other Sensory Impairments Neurological History: Reports: Other Neuro Impairments/Disorders - PAIN CLINIC PT Denies: Hx Dementia, Hx Developmental Delay, Hx Headaches, Hx Migraine, Hx Nerve Disease, Hx Seizures, Hx Spinal Cord Injury, Hx Transient Ischemic Attacks (TIA) Psychiatric History: Denies: Hx Panic Disorder - Cancer History Cancer Type, 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 Hx Chemotherapy: No Hx Radiation Therapy: No Hx Palliative Cancer Treatment: No - Surgical History Surgery Procedure, Year, and Place: whipple procedure 2000, cataracts,bowel abcess, regional enteritis large intestine trasnverse colectomy/colostomy 2004, fistula to bladder repair, hysterectomy Hx Anesthesia Reactions: No Infectious Disease History: Denies: Hx Clostridium Difficile, Hx Hepatitis, Hx Human Immunodeficiency Virus (HIV), Hx of Known/Suspected MRSA, Hx Shingles, Hx Tuberculosis, Hx Known/ Suspected VRE, Hx Known/Suspected VRSA, History Other Infectious Disease - Family History Known Family History: Positive: Cardiac Disease, Other - CA Negative: Diabetes - Social History Alcohol Use: Daily Alcohol Amount: 4-5 DRINKS Hx Substance Use: No Substance Use Type: Reports: None Hx Tobacco Use: Yes Smoking Status (MU): Former Smoker Type: Cigarettes Have You Smoked in the Last Year: No Review of Systems Positive: Other - Fall Negative: Shortness Of Breath Neurological/Mental Status: Other - Memory deficit Negative: Headache, Weakness All Other Systems Reviewed And Are Negative: No Physical Exam - Summary Physical Exam Summary: Appearance: Well-appearing, Well-nourished, lying in bed comfortably Skin: Warm, dry, no obvious rash Eyes: sclera anicteric, no conjunctival pallor HENT: mucous membranes moist, pharynx appears normal Neck: Supple, nontender Respiratory: Clear to auscultation, no signs of respiratory distress Cardiovascular: Normal S1, S2. No murmurs. Normal distal pulses in tibial and radial bilaterally. Abdomen: Soft, nontender, normal active bowel sounds present, colostomy on the right side of her abdomen that is draining appropriately. Musculoskeletal: Normal, Strength/ROM Intact Neurological: A&Ox3, awake and alert, mentation is normal, speech is fluent and appropriate Psychiatric: affect is normal, does not appear anxious or depressed Triage Information Reviewed: Yes Vital Signs Reviewed: Yes Procedures - Sedation Patient Received Moderate/Deep Sedation with Procedure: No Diagnostics - Laboratory Result Diagrams: 01/31/20 22:49 01/31/20 22:49 Lab Statement: Any lab studies that have been ordered have been reviewed, and results considered in the medical decision making process. - EKG 23:07 Cardiac Rate: Bradycardia - 58 BPM EKG Rhythm: Sinus Bradycardia Summary of EKG Findings: First degree AVB with sinus bradycardia, otherwise normal EKG. ED physician has reviewed and interpreted this EKG. Complex Multi-Symp Course/Dx Course Of Treatment: 89 year old F presenting to [facility] via EMS with a chief complaint of a fall earlier today. Physical exam findings: colostomy on the right side of her abdomen that is draining appropriately. An EKG reveals first degree AVB with sinus bradycardia, otherwise normal EKG. Test results with no significant abnormalities except for an RBC of 3.49, Hgb of 11.3, Hct of 33, MCH of 32, absolute lymphs of 0.6, sodium of 133, chloride of 100, glucose of 111, calcium of 10.4, serum alc of 150, ur specific gravity of 1.008, ur leukocyte esterase of 1+ A, urine WBC of 1+ A, ur squamous epith cells present A , and hyaline casts present A. In the ED course, the patient was given normal saline. Patient will be discharged. The patient is agreeable with this plan. - Diagnoses Provider Diagnoses: Alcohol intoxication, Fall Discharge ED - Sign-Out/Discharge Documenting (check all that apply): Patient Departure - Discharge Plan Condition: Good Disposition: HOME Patient Education Materials: Alcohol Intoxication (ED) Referrals: Amber Shultz MD [Primary Care Provider] - Additional Instructions: Your alcohol level was 150, roughly twice the legal driving limit. This is likely what caused you to fall. We did not find any other significant abnormalities on your testing tonight, and since you are feeling better it is ok to discharge you home. I would recommend reducing your alcohol intake though. - Attestation Statements Document Initiated by Scribe: Yes Documenting Scribe: Sara Larson Provider For Whom Scribe is Documenting (Include Credential): Roc Metcalf MD Scribe Attestation: I, Sara Larson, scribed for Roc Metcalf MD on 02/01/20 at 0510. Status of Scribe Document: Ready
[2020-01-31] MEDS ORDERED: NS 0.9% 1000 ML** 1,000 ML IV ONE (22:41)
[2020-01-31 23:01] LABS: ABS Eosinophils 0.1 10^3/ul (0-0.6); ABS Lymphocytes 0.6 10^3/ul (1.0-4.8); ABS Monocytes 0.3 10^3/ul (0-0.8); ABS Neutrophils 2.4 10^3/ul (1.5-7.7); Eosinophil % 3.1 %; Hematocrit 33 % (35-47); Hemoglobin 11.3 g/dL (12.0-16.0); Lymphocyte % 17.1 %; Mean Corpuscular HGB Conc 34 g/dL (31-36); Mean Corpuscular Hemoglobin 32 pg (27-31); Mean Corpuscular Volume 95 fL (80-97); Mean Platelet Volume 7.8 fL (7.4-10.4); Nucleated Red Blood Cells % 0.1; Platelet Count 222 10^3/uL (150-450); Red Blood Count 3.49 10^6 /uL (3.70-4.87); Red Cell Distribution Width 14 % (10-15); White Blood Count 3.5 10^3/uL (3.5-10.8)
--- OUTSIDE RECORDS SUMMARY | 2020-01-31 23:03 | XMS REPORT ---
:1930 Author Organization [facility] Care Team Providers Name Role Phone Unavailable Unavailable Unavailable Problems Condition Condition Condition Status Onset Resolution Last Treating Comments Name Details Category Date Date Treatment Clinician Date Chronic Chronic Diagnosis Active Estella obstructive obstructive 3-23 Gonzalez pulmonary pulmonary disease, disease, unspecified unspecified Allergies, Adverse Reactions, Alerts Allergy Name Allergy Status Severity Reaction(s) Onset Inactive Treating Comments Type Date Date Clinician Penicillins Allergen Active Unknown Reaction 2018-11 Suzette Beam Group Unknown 0-17 Medications Ordered Filled Start Stop Current Ordering Indication Dosage Frequency Signature Comments Components Medication Medication Date Date Medication? Clinician (SIG) Name Name No Known No Known No None None None Medications Medications For This For This Patient Patient Procedures This patient has no known procedures. Results This patient has no known results.
--- OUTSIDE RECORDS SUMMARY | 2020-01-31 23:03 | XMS REPORT ---
:1930 Author Organization [facility] Care Team Providers Name Role Phone Unavailable [...]
--- OUTSIDE RECORDS SUMMARY | 2020-01-31 23:03 | XMS REPORT ---
:1930 Author Organization [facility] Care Team Providers Name Role Phone Unavailable [...]
[2020-01-31 23:19] LABS: Albumin 3.8 g/dL (3.2-5.2); Albumin/Globulin Ratio 1.5 (1-3); BUN/Creatinine Ratio 16.3 (8-20); Calcium 10.4 mg/dL (8.6-10.3); EGFR African American 75.5 (>60); EGFR Non-African American 62.4 (>60); Globulin 2.6 g/dL (2-4); Potassium 4.5 mmol/L (3.5-5.0); Total Bilirubin 0.5 mg/dL (0.2-1.0); Total Protein 6.4 g/dL (6.4-8.9)
[2020-01-31 23:21] LABS: Troponin I 0.02 ng/mL (<0.03)
[2020-02-01 00:26] LABS: TSH (Thyroid Stimulating Horm) 5.2 mcIU/mL (0.34-5.60)
[2020-02-01 01:11] LABS: Urine Appearance Clear; Urine Bilirubin Negative (Negative); Urine Blood Negative (Negative); Urine Color Yellow; Urine Glucose Negative (Negative); Urine Ketones Negative (Negative); Urine Nitrite Negative (Negative); Urine Protein Negative (Negative); Urine Specific Gravity 1.008 (1.010-1.030); Urine Urobilinogen Negative (Negative)
[2020-02-01 02:12] LABS: Urine Bacteria Absent (Absent); Urine Red Blood Cell Trace(0-2/hpf) (Absent); Urine Squamous Epithelial Cell Present (Absent); Urine White Blood Cell 1+(6-10/hpf) (Absent)
[2020-02-01 05:40] VITALS: BP 187/92
== END 2020-02-01 05:40 | disposition home or self-care (01) ==
LOC: ED 22:28
DX: F10.129 Alcohol abuse with intoxication, unspecified (principal); E03.9 Hypothyroidism, unspecified; I10 Essential (primary) hypertension; J44.9 Chronic obstructive pulmonary disease, unspecified; Z91.81 History of falling; Z87.891 Personal history of nicotine dependence; Z88.0 Allergy status to penicillin; Z79.890 Hormone replacement therapy; Z79.899 Other long term (current) drug therapy
CPT/HCPCS: 36415; 80053; 80320; 81003; 81015; 83605; 83735; 84443; 84484; 85025; 87086; 93005; 96360; 99283; G0480

== ENCOUNTER 2021-03-30 10:07 | Inpatient (IN) ==
[2021-03-30] MEDS ORDERED: Levofloxacin 750 MG IVPREMIX 750 MG/150 ML BAG IVPB ONE (10:20)
[2021-03-30] MEDS ORDERED: Aztreonam 2 GM in NS 0.9% 50 ML 50 ML IVPB ONE (10:20)
[2021-03-30] MEDS ORDERED: NS 0.9% 1000 ml BAG 1,000 ML IV ONE (10:20)
[2021-03-30] MEDS ORDERED: Aztreonam 2 GM in NS 0.9% 100 ml BAG 100 ML IVPB ONE (10:38)
[2021-03-30 11:09] LABS: Hematocrit 36 % (35-47); Hemoglobin 11.9 g/dL (12.0-16.0); Mean Corpuscular HGB Conc 33 g/dL (31-36); Mean Corpuscular Hemoglobin 30 pg (27-31); Mean Corpuscular Volume 93 fL (80-97); Mean Platelet Volume 8.2 fL (7.4-10.4); Platelet Count 240 10^3/uL (150-450); Red Blood Count 3.91 10^6 /uL (3.70-4.87); Red Cell Distribution Width 15 % (10-15); White Blood Count 14.6 10^3/uL (3.5-10.8)
[2021-03-30 11:15] LABS: ABS Lymphocytes 0.2 10^3/ul (1.0-4.8); ABS Monocytes 0.7 10^3/ul (0-0.8); ABS Neutrophils 13.7 10^3/ul (1.5-7.7); Eosinophil % 0.1 %; Lymphocyte % 1.4 %
[2021-03-30 11:19] LABS: Activated Partial Thrombo Time 22.4 seconds (26.0-38.0); INR 0.93 (0.82-1.09)
[2021-03-30 11:51] LABS: Troponin I 0.03 ng/mL (<0.03)
[2021-03-30 12:08] LABS: Albumin 2.8 g/dL (3.2-5.2); Anion Gap 7 mmol/L (2-11); CO2 Carbon Dioxide 30 mmol/L (22-32); Calcium 11.3 mg/dL (8.6-10.3); Chloride 102 mmol/L (101-111); Potassium 4.1 mmol/L (3.5-5.0); Sodium 139 mmol/L (135-145)
[2021-03-30 12:14] LABS: Blood Urea Nitrogen 38 mg/dL (6-24); Glucose 113 mg/dL (70-100)
[2021-03-30 12:15] LABS: ALT 21 U/L (7-52); AST 25 U/L (13-39); Albumin/Globulin Ratio 0.9 (1-3); Alkaline Phosphatase 120 U/L (35-149); C Reactive Protein 137.57 mg/L (<8.01); EGFR African American 81.9 (>60); EGFR Non-African American 67.7 (>60); Globulin 3.1 g/dL (2-4); Total Protein 5.9 g/dL (6.4-8.9)
[2021-03-30 16:22] LABS: Urine Appearance Clear; Urine Bilirubin Negative (Negative); Urine Blood Negative (Negative); Urine Color Yellow; Urine Glucose Negative (Negative); Urine Ketones Negative (Negative); Urine Nitrite Negative (Negative); Urine Protein 1+(30 mg/dL) (Negative); Urine Specific Gravity 1.018 (1.002-1.030); Urine Urobilinogen Negative (Negative)
[2021-03-30 16:25] LABS: Urine Bacteria Absent (Absent); Urine Red Blood Cell Trace(0-2/hpf) (Absent); Urine Squamous Epithelial Cell Present (Absent); Urine White Blood Cell Trace(0-5/hpf) (Absent)
[2021-03-30] MEDS ORDERED: Albuterol HFA INHALER 8 gm MDI INH PRN (17:15)
[2021-03-30] MEDS ORDERED: Senna TAB 8.6 mg TAB PO PRN (18:23)
[2021-03-30] MEDS: methylPREDNISolone SOD 40 mg/ml 1 ml VIAL IV SCH (18:25)
[2021-03-30] MEDS: Lactated Ringers 1000 ml BAG 1,000 ML IV SCH (18:32)
[2021-03-30] MEDS: Albuterol/Ipratropium NEB.SOL (2.5/0.5 MG) 3 ML NEB.SOLN INH SCH ×2 (19:21→23:56)
[2021-03-30] MEDS: Heparin 5000 UNITS/ML 1 mL VIAL SUBCUT SCH (21:55)
[2021-03-30] MEDS ORDERED: Lorazepam PYXIS KEY PRN (22:43)
[2021-03-30] MEDS ORDERED: LORazepam 2 mg VIAL 1 ml IV PUSH PRN (22:43)
[2021-03-31] MEDS: Heparin 5000 UNITS/ML 1 mL VIAL SUBCUT SCH ×3 (05:00→20:42)
[2021-03-31 05:47] LABS: Hematocrit 35 % (35-47); Hemoglobin 11.3 g/dL (12.0-16.0); Mean Corpuscular HGB Conc 32 g/dL (31-36); Mean Corpuscular Hemoglobin 30 pg (27-31); Mean Corpuscular Volume 94 fL (80-97); Mean Platelet Volume 8.2 fL (7.4-10.4); Platelet Count 229 10^3/uL (150-450); Red Blood Count 3.75 10^6 /uL (3.70-4.87); Red Cell Distribution Width 15 % (10-15); White Blood Count 13.5 10^3/uL (3.5-10.8)
[2021-03-31 06:04] LABS: Calcium 11.4 mg/dL (8.6-10.3); EGFR African American 89.6 (>60); EGFR Non-African American 74.1 (>60); Potassium 4.5 mmol/L (3.5-5.0)
[2021-03-31 06:22] LABS: ABS Lymphocytes 0.2 10^3/ul (1.0-4.8); ABS Monocytes 0.3 10^3/ul (0-0.8); Lymphocyte % 1.3 %
[2021-03-31] MEDS: Lactated Ringers 1000 ml BAG 1,000 ML IV SCH ×2 (06:57→12:58)
[2021-03-31] MEDS: Albuterol/Ipratropium NEB.SOL (2.5/0.5 MG) 3 ML NEB.SOLN INH SCH ×3 (07:23→19:52)
[2021-03-31] MEDS: methylPREDNISolone SOD 40 mg/ml 1 ml VIAL IV SCH (08:56)
[2021-03-31 09:04] LABS: Magnesium 1.7 mg/dL (1.9-2.7); Phosphorus 2.5 mg/dL (2.5-5.0)
[2021-03-31] MEDS ORDERED: Magnesium Sulfate 2 gm BAG 2 GM/50 ML BAG IVPB ONE (11:45)
[2021-03-31] MEDS ORDERED: hydrALAZINE 20 mg/ml 1 ML Vial IV IV SLOW PU PRN (23:43)
[2021-04-01] MEDS: Albuterol/Ipratropium NEB.SOL (2.5/0.5 MG) 3 ML NEB.SOLN INH SCH ×2 (02:01→07:06)
[2021-04-01] MEDS: Lactated Ringers 1000 ml BAG 1,000 ML IV SCH (05:20)
[2021-04-01] MEDS: Heparin 5000 UNITS/ML 1 mL VIAL SUBCUT SCH ×3 (05:20→22:37)
[2021-04-01 06:10] LABS: Hematocrit 38 % (35-47); Hemoglobin 12.6 g/dL (12.0-16.0); Mean Corpuscular HGB Conc 33 g/dL (31-36); Mean Corpuscular Hemoglobin 30 pg (27-31); Mean Corpuscular Volume 91 fL (80-97); Mean Platelet Volume 8.4 fL (7.4-10.4); Platelet Count 279 10^3/uL (150-450); Red Blood Count 4.18 10^6 /uL (3.70-4.87); Red Cell Distribution Width 15 % (10-15); White Blood Count 16.2 10^3/uL (3.5-10.8)
[2021-04-01 06:29] LABS: Calcium 11.7 mg/dL (8.6-10.3); EGFR African American 109.9 (>60); EGFR Non-African American 90.8 (>60); Magnesium 1.8 mg/dL (1.9-2.7); Phosphorus 2.3 mg/dL (2.5-5.0); Potassium 3.9 mmol/L (3.5-5.0)
[2021-04-01] MEDS ORDERED: Flumazenil 0.5 mg/5 ml 0.1 MG/ML 5 ml VIAL ONE (08:50)
[2021-04-01] MEDS ORDERED: Levofloxacin 750 MG IVPREMIX 750 MG/150 ML BAG IVPB SCH (09:00)
[2021-04-01] MEDS: Flumazenil 0.5 mg/5 ml 0.1 MG/ML 5 ml VIAL IV ONE ×2 (09:02→09:17)
[2021-04-01] MEDS ORDERED: Magnesium Sulfate 2 gm BAG 2 GM/50 ML BAG IVPB ONE (10:41)
[2021-04-01] MEDS ORDERED: Potassium Phosphate IV 15 MMOLE in NS 0.9% 250 ml 250 ML IVPB ONE (10:41)
[2021-04-01] MEDS ORDERED: Albuterol/Ipratropium NEB.SOL (2.5/0.5 MG) 3 ML NEB.SOLN INH PRN (11:51)
[2021-04-01] MEDS: Metoprolol Tartrate 5 mg VIAL 5 ml VIAL (1 mg/ml) IV PRN (23:02)
[2021-04-02] MEDS: Metoprolol Tartrate 5 mg VIAL 5 ml VIAL (1 mg/ml) IV PRN (02:41)
[2021-04-02] MEDS ORDERED: NS 0.9% 500 ml BAG 500 ML IV ONE ×2 (04:45→05:26)
[2021-04-02 04:53] LABS: Hematocrit 40 % (35-47); Hemoglobin 12.3 g/dL (12.0-16.0); Mean Corpuscular HGB Conc 31 g/dL (31-36); Mean Corpuscular Hemoglobin 30 pg (27-31); Mean Corpuscular Volume 96 fL (80-97); Mean Platelet Volume 8.6 fL (7.4-10.4); Platelet Count 307 10^3/uL (150-450); Red Blood Count 4.15 10^6 /uL (3.70-4.87); Red Cell Distribution Width 16 % (10-15)
[2021-04-02] MEDS ORDERED: NS 0.9% 1000 ml BAG 1,000 ML IV SCH (05:00)
[2021-04-02 05:09] LABS: Blood Urea Nitrogen 37 mg/dL (6-24); CO2 Carbon Dioxide 37 mmol/L (22-32); Calcium 11.5 mg/dL (8.6-10.3); Chloride 104 mmol/L (101-111); EGFR African American 60.5 (>60); Glucose 139 mg/dL (70-100); Magnesium 2.4 mg/dL (1.9-2.7); Phosphorus 7.1 mg/dL (2.5-5.0); Sodium 139 mmol/L (135-145)
[2021-04-02] MEDS ORDERED: Vancomycin per Pharmacy 1 EA NOTE FOLLOW UP PRN (05:11)
[2021-04-02] MEDS ORDERED: Vancomycin 1,000 MG in NS 0.9% 250 ml 250 ML IVPB ONE (05:13)
[2021-04-02 05:17] LABS: Potassium 5.1 mmol/L (3.5-5.0)
[2021-04-02] MEDS: Heparin 5000 UNITS/ML 1 mL VIAL SUBCUT SCH (06:22)
[2021-04-02 06:23] VITALS: BP 73/39
[2021-04-02] MEDS: Morphine ORAL CONCENTRATE 5 MG/0.25 ML ORAL.SYRIN PO PRN ×2 (06:50→08:47)
[2021-04-02] MEDS ORDERED: Ondansetron 4 mg VIAL 2 MG/ML 2 ml VIAL IV PRN (07:23)
[2021-04-02] MEDS ORDERED: LORazepam 2 mg VIAL 1 ml IV PUSH PRN (07:23)
[2021-04-02] MEDS ORDERED: Lorazepam PYXIS KEY PRN (07:36)
== END 2021-04-02 10:14 | disposition expired ==
LOC: ED 10:07 → ICU 13:03 → MEDTELE 03-31 10:20 → ICU 04-01 07:59
PROVIDERS: ADMIT Internal Medicine; ATTEND Internal Medicine